=== PATIENT | female | born 1980 | race Caucasian/White ===

== ENCOUNTER 2022-07-26 15:58 | Outpatient (REF) | payer MEDICAID, SELFPAY ==
--- NOTE | ~2022-07-26 | MM_ITS ---
EXAMINATION: MM SCREENING DIGITAL BREAST TOMOSYNTHESIS, BILATERAL CLINICAL INFORMATION: Screening. Asymptomatic. The lifetime risk of breast cancer based on the Tyrer-Cuzick Model is 9%. COMPARISON: Mammography: None TECHNIQUE: Digital breast tomosynthesis is performed in both the craniocaudal and mediolateral oblique views along with computer-aided detection (CAD). Synthesized 2D images are generated from the tomosynthesis. FINDINGS: There are scattered areas of fibroglandular density (ACR BI-RADS breast composition Category b). There are no significant masses, abnormal calcifications, or other abnormalities. MM/MM tomosynthesis screening BI IMPRESSION: No mammographic evidence of malignancy. ASSESSMENT: BI-RADS 1: Negative RECOMMENDATION: Routine annual mammography screening. This patient's information was entered into a reminder system with a target due date for their next mammogram.
== END 2022-07-26 15:59 | disposition home or self-care (01) ==
LOC: HO.MAMMO 15:58
PROVIDERS: PCP Pediatrics; Visit Provider Pediatrics
DX: Z12.31 Encounter for screening mammogram for malignant neoplasm of breast (principal)
CPT/HCPCS: 77063; 77067

== ENCOUNTER 2022-11-27 10:54 | Emergency (ER) | payer MEDICAID, SELFPAY ==
--- NOTE | ~2022-11-27 | CT_ITS ---
EXAMINATION: CT ABDOMEN AND PELVIS WITH CONTRAST CLINICAL INFORMATION: Left lower quadrant pain. Rule out diverticulitis. COMPARISON: None available. TECHNIQUE: Multidetector volumetric images were obtained from the superior aspect of the liver through the pubic symphysis following administration 85 mL of Omnipaque 350 intravenous contrast. Sagittal and coronal reformatted images were obtained on the technologist's workstation. Oral contrast: Yes This CT examination was performed using dose optimization techniques as appropriate, variously including the following: *Automated exposure control *Adjustment of mA and/or kV according to patient size (this includes techniques or standardized protocols for targeted exams where dose is matched to indication/reason for exam; i.e. extremities or head) *Use of iterative reconstruction technique DLP: 840 mGy-cm FINDINGS: LUNG BASES: The visualized lung bases are unremarkable. LIVER, GALLBLADDER, AND BILIARY TREE: The liver is normal in size, shape, and attenuation. No focal hepatic lesion or biliary ductal dilatation is present. The gallbladder has been removed. PANCREAS: Unremarkable. SPLEEN: Unremarkable. ADRENAL GLANDS: 1 cm low-attenuation left adrenal lesion. The right adrenal gland is normal. No imaging follow-up recommended. KIDNEYS AND URETERS: Mild left hydronephrosis. The ureter left ureter does not appear dilated. Appearance is questionable for mild left UPJ obstruction. Kidneys are otherwise normal. BLADDER: Unremarkable. GASTROINTESTINAL TRACT: The small and large bowel are unremarkable. The appendix is unremarkable. ABDOMINAL WALL: Small periumbilical hernia containing fat. LYMPH NODES: Normal. VASCULAR: Unremarkable. PELVIC VISCERA: The anterior wall of the uterus abuts the anterior pelvic wall. There is some thickening of the anterior pelvic wall in this region and adjacent fat stranding. Question postoperative surgical change or possibly related to endometriosis. There is a tampon in place. The uterus and adnexa are unremarkable. OSSEOUS STRUCTURES: Mild degenerative changes of the spine and joints. CT/CT abdomen pelvis w IV con IMPRESSION: No evidence of diverticulosis or diverticulitis. Mild left UPJ obstruction. Inflammatory changes adjacent to the anterior wall of the uterus which abuts the anterior abdominal wall. Question postsurgical change versus endometriosis.. Fleischner guidelines were followed.
[2022-11-27 11:19] VITALS: BP 126/63; PULSE 87; RESP 18; TEMP 36.8; O2SAT 96; BMI 42.0
--- NOTE | 2022-11-27 11:19 | ED_ITS ---
HPI - Abdominal Pain General Chief Complaint: Abdominal Pain Stated Complaint: Abd cramping Time Seen by Provider: 11/27/22 12:08 History of Present Illness HPI narrative: patient complains of crampy abdominal pain mostly lower abdominal, but sometimes upper both sides as well, right now pain is worst in the left lower abdomen it is described as moderate, it is crampy and intermittent She has had no nausea vomiting or diarrhea no anorexia no dysuria no frequency She has no chest pain or shortness of breath no fever no back pain or flank pain Related Data Previous Rx's Medication Instructions Recorded acetaminophen 500 mg tablet 1,000 mg PO QID PRN pain #30 tabs 11/27/22 famotidine 20 mg tablet (Pepcid) 20 mg PO DAILY #14 tabs 11/27/22 ibuprofen 600 mg tablet 600 mg PO Q6H PRN pain #20 tabs 11/27/22 Allergies Allergy/AdvReac Type Severity Reaction Status Date / Time topiramate [From TOPAMAX] Allergy Unknown UNKNOWN Unverified 03/24/20 16:37 oxcarbazepine Allergy Rash Verified 11/27/22 11:25 [facility] Past Medical History Source: nursing notes reviewed Social History Social History Alcohol intake: never Smoked in Last 30 Days: No Use of substances other than those prescribed or required for medical reasons: No Advance Directives: No Advance Directives Information Provided: No Patient : No Physical Exam ED Vital Signs: Vital Signs - 24 hr 11/27/22 11:19 11/27/22 13:24 Temperature 98.3 F 97.9 F Pulse Rate 87 70 Respiratory Rate 18 18 Blood Pressure 126/63 111/54 L Pulse Oximetry 96 99 Oxygen Delivery Method Room Air Room Air BMI result Body Mass Index 42.0 general appearance is no acute distress Eyes are anicteric no pallor Pharynx is clear with moist mucous man Reins no redness swelling or exudate Neck is supple Chest clear to auscultation bilateral Chest wall nontender Heart no murmur Abdomen had diffuse mild tenderness, worst in left lower quadrant no rebound no guarding The back there is no CVA tenderness there is no flank tenderness on either side Extremities full range of motion x4, no pedal edema Skin no rash Neuro no focal deficits Course Course Course Narrative: RME: 42yo F w/no sig PMHx c/o constant lower abdominal pain x3 days radiating to upper abdomen with assoc diarrhea yesterday. denies fever, chills, N/V, vaginal bleeding or discharge, dysuria/hematuria abdomen soft diffusely ttp > RLQ, no rebound or guarding Labs, UA, U-preg ordered Full HPI, ROS and PE to be performed by primary ED provider. No acute findings on CBC, white count was 9.7, no anemia no acute findings on chemistry except a mild bump in ALT which was 35 otherwise LFTs and lipase were normal, renal function was normal with BUN of 12 and creatinine 00.73 Urinalysis was negative with no sign of UTI, no blood CT scan was done and it showed mild left hydro nephrosis, and was questionable for mild left UPJ obstruction, as well as some thickening of anterior pelvic wall showing possibility of endometriosis No other acute findings Patient is informed that she should follow with urologist and is given the name for evaluation of hydronephrosis and UPJ She is advised to follow with fish and game warden for evaluation of possible endometriosis She is comfortable on discharge without needing any pain medicine and is tolerating p.o. and is discharged from the emergency room Medical Decision Making Lab Data MDM Lab Attestation statement: I reviewed the patient's lab results. 11/27/22 11:35 11/27/22 11:35 Labs: Lab Results 11/27/22 11/27/22 11/27/22 Range/Units 11:35 11:35 11:41 WBC 9.7 (4.8-10.8) X10*3/uL RBC 5.08 (4.20-5.50) X10*6/uL Hgb 14.5 (12.0-16.0) g/dl Hct 42.9 (37.0-47.0) % MCV 84.4 (80.0-98.0) fL MCH 28.5 (27.0-33.0) pg MCHC 33.8 (31.0-35.0) g/dl RDW 13.2 (11.0-16.0) % Plt Count 344 (160-400) X10*3/uL MPV 9.5 (9.4-12.3) fL Immature Gran % (Auto) 0.2 (0.0-0.4) % Neut % (Auto) 51.8 (45-73) % Lymph % (Auto) 41.8 H (20-40) % [place] % (Auto) 5.1 (2-11) % Eos % (Auto) 0.8 (0-4) % Baso % (Auto) 0.3 (0-2) % Lymph # (Auto) 4.0 (1.2-4.9) X10*3/uL [place] # (Auto) 0.5 (0.1-1.2) X10*3/uL Eos # (Auto) 0.1 (0.0-0.4) X10*3/uL Baso # (Auto) 0.0 (0.0-0.2) X10*3/uL Abs Immat Gran (auto) 0.02 (0.00-0.03) X10*3/uL Absolute Neuts (auto) 5.0 (2.0-8.3) x10*3/uL Absolute Nucleated RBC 0.000 (0.0-0.012) X10*3/uL Nucleated RBC % (auto) 0.0 (0.0-0.2) /100WBC Sodium 136 (135-145) mmol/L Potassium 3.6 (3.3-5.1) mmol/L Chloride 100 (96-108) mmol/L Carbon Dioxide 27 (22-29) mmol/L Anion Gap 13 (12-20) BUN 12 (9-16) mg/dL Creatinine 0.73 (0.5-1.4) mg/dL Estim Creat Clear Calc 102.9 Estimated GFR > 60 Random Glucose 122 H (60-115) mg/dL Calcium 9.8 (8.4-10.2) mg/dL Magnesium 1.8 (1.6-2.6) mg/dL Total Bilirubin 0.6 (0.0-1.0) mg/dL Direct Bilirubin 0.2 (0.0-0.5) mg/dL AST 27 (5-31) U/L ALT 35 H (0-31) U/L Alkaline Phosphatase 72 (39-117) U/L Total Protein 7.2 (6.5-8.0) g/dL Albumin 4.2 (3.5-5.0) g/dL Lipase 21 (8-78) U/L Urine Color Yellow Urine Appearance Clear Urine pH 5.5 (5.0-9.0) Ur Specific [facility] 1.015 (1.005-1.025) Urine Protein Negative (Neg-Trace) mg/dL Urine Glucose (UA) Negative (Negative) mg/dL Urine Ketones Negative (Negative) mg/dL Urine Blood Negative (Negative) Urine Nitrite Negative (Negative) Ur Leukocyte Esterase Negative (Negative) Urine Test (NEGATIVE) 11/27/22 Range/Units 11:41 WBC (4.8-10.8) X10*3/uL RBC (4.20-5.50) X10*6/uL Hgb (12.0-16.0) g/dl Hct (37.0-47.0) % MCV (80.0-98.0) fL MCH (27.0-33.0) pg MCHC (31.0-35.0) g/dl RDW (11.0-16.0) % Plt Count (160-400) X10*3/uL MPV (9.4-12.3) fL Immature Gran % (Auto) (0.0-0.4) % Neut % (Auto) (45-73) % Lymph % (Auto) (20-40) % [place] % (Auto) (2-11) % Eos % (Auto) (0-4) % Baso % (Auto) (0-2) % Lymph # (Auto) (1.2-4.9) X10*3/uL [place] # (Auto) (0.1-1.2) X10*3/uL Eos # (Auto) (0.0-0.4) X10*3/uL Baso # (Auto) (0.0-0.2) X10*3/uL Abs Immat Gran (auto) (0.00-0.03) X10*3/uL Absolute Neuts (auto) (2.0-8.3) x10*3/uL Absolute Nucleated RBC (0.0-0.012) X10*3/uL Nucleated RBC % (auto) (0.0-0.2) /100WBC Sodium (135-145) mmol/L Potassium (3.3-5.1) mmol/L Chloride (96-108) mmol/L Carbon Dioxide (22-29) mmol/L Anion Gap (12-20) BUN (9-16) mg/dL Creatinine (0.5-1.4) mg/dL Estim Creat Clear Calc Estimated GFR Random Glucose (60-115) mg/dL Calcium (8.4-10.2) mg/dL Magnesium (1.6-2.6) mg/dL Total Bilirubin (0.0-1.0) mg/dL Direct Bilirubin (0.0-0.5) mg/dL AST (5-31) U/L ALT (0-31) U/L Alkaline Phosphatase (39-117) U/L Total Protein (6.5-8.0) g/dL Albumin (3.5-5.0) g/dL Lipase (8-78) U/L Urine Color Urine Appearance Urine pH (5.0-9.0) Ur Specific [facility] (1.005-1.025) Urine Protein (Neg-Trace) mg/dL Urine Glucose (UA) (Negative) mg/dL Urine Ketones (Negative) mg/dL Urine Blood (Negative) Urine Nitrite (Negative) Ur Leukocyte Esterase (Negative) Urine Test NEGATIVE (NEGATIVE) Medications Administered Discontinued Medications Generic Name Dose Route Start Last Admin Trade Name Freq PRN Reason Stop Dose Admin Iohexol 100 ml 11/27/22 13:58 11/27/22 13:59 Iohexol 350 Mg/Ml 100 Ml Infus..Btl IV 11/27/22 13:59 85 ml ONCE ONE Administration Discharge Plan Discharge Clinical Impression: Abdominal pain, Pelvic pain Patient Disposition: Home, Self-Care Additional Instructions: we are not sure what is causing the crampy discomfort CT scan showed possibility of endometriosis so follow with your fish and game warden CT scan showed a possible obstruction in the urinary tract so follow with urologist There was no emergent problem identified on the CT scan Return for vomiting worsening pain or severe pain out of control or any worse condition or any concerns You can use Tylenol and or Motrin as needed for pain, I also wrote a script for Pepcid to see if acid reduction helps Prescriptions: New acetaminophen 500 mg tablet 1,000 mg PO QID PRN (Reason: pain) Qty: 30 0RF ibuprofen 600 mg tablet 600 mg PO Q6H PRN (Reason: pain) Qty: 20 0RF famotidine [Pepcid] 20 mg tablet 20 mg PO DAILY Qty: 14 0RF Referrals: Charles Yoo MD [Physician] - ( left hydronephrosis, left UPJ obstruction)
[2022-11-27 11:39] LABS: MANUAL DIFF FLAG NO
[2022-11-27 11:40] LABS: Basophils Percent Auto 0.3 % (0-2); Eosinophils Absolute Auto 0.1 X10*3/uL (0.0-0.4); Eosinophils Percent Auto 0.8 % (0-4); Hematocrit 42.9 % (37.0-47.0); Hemoglobin 14.5 g/dl (12.0-16.0); Imm Gran Abs Auto 0.02 X10*3/uL (0.00-0.03); Imm Gran Pct Auto 0.2 % (0.0-0.4); Lymphocytes Percent Auto 41.8 % (20-40); Mean Corpuscular HGB Conc 33.8 g/dl (31.0-35.0); Mean Corpuscular Hemoglobin 28.5 pg (27.0-33.0); Mean Corpuscular Volume 84.4 fL (80.0-98.0); Mean Platelet Volume 9.5 fL (9.4-12.3); Monocytes Absolute Auto 0.5 X10*3/uL (0.1-1.2); Monocytes Percent Auto 5.1 % (2-11); Neutrophils Percent Auto 51.8 % (45-73); Platelet Count 344 X10*3/uL (160-400); Red Blood Count 5.08 X10*6/uL (4.20-5.50); Red Cell Distribution Width 13.2 % (11.0-16.0); White Blood Count 9.7 X10*3/uL (4.8-10.8)
[2022-11-27 11:55] LABS: Appearance Urine Clear; Color Urine Yellow; Glucose Urine UA Negative (Negative); Leukocyte Esterase Urine Negative (Negative); Nitrite Urine Negative (Negative); PH 5.5 (5.0-9.0); Specific Gravity - Urine 1.015 (1.005-1.025); UPreg QC Valid YES; Urine Blood Negative (Negative); Urine Ketones Negative (Negative); Urine Pregnancy NEGATIVE (NEGATIVE); Urine Protein Negative (Neg-Trace)
[2022-11-27 12:00] LABS: Alanine Aminotransferase 35 U/L (0-31); Albumin Level 4.2 g/dL (3.5-5.0); Alkaline Phosphatase 72 U/L (39-117); Anion Gap 13 (12-20); Aspartate Amino Transferase 27 U/L (5-31); Bilirubin Direct 0.2 mg/dL (0.0-0.5); Bilirubin Total 0.6 mg/dL (0.0-1.0); Blood Urea Nitrogen 12 mg/dL (9-16); Calcium 9.8 mg/dL (8.4-10.2); Carbon Dioxide 27 mmol/L (22-29); Chloride 100 mmol/L (96-108); Creatinine Clr Calc Pharmacy 102.9; Estimated Glomerular Filt Rate > 60; Glucose Random 122 mg/dL (60-115); Lipase 21 U/L (8-78); Magnesium 1.8 mg/dL (1.6-2.6); Potassium 3.6 mmol/L (3.3-5.1); Sodium 136 mmol/L (135-145); Total Protein 7.2 g/dL (6.5-8.0)
[2022-11-27 13:24] VITALS: BP 111/54; PULSE 70; RESP 18; TEMP 36.6; O2SAT 99
[2022-11-27] MEDS: iohexoL 350 MG/ML 100 ML INFUS..BTL IV (13:59)
== END 2022-11-27 16:07 | disposition home or self-care (01) ==
PROVIDERS: Physician Assistant; Emergency Provider Emergency Medicine Emergency Medical Services; PCP Pediatrics
DX: R10.9 Unspecified abdominal pain (principal); R10.2 Pelvic and perineal pain; R19.7 Diarrhea, unspecified; N13.39 Other hydronephrosis
CPT/HCPCS: 36415; 74177; 80048; 80076; 81003; 81025; 83690; 83735; 85025; 99284; Q9967

== ENCOUNTER → 2022-12-19 14:54 | Outpatient (BNVA) | payer MEDICAID, SELFPAY | PROVIDERS: PCP Pediatrics; Visit Provider Urology | DX: R93.429 Abnormal radiologic findings on diagnostic imaging of unspecified kidney (principal); Z13.9 Encounter for screening, unspecified | CPT/HCPCS: 99202 ==

== ENCOUNTER 2023-03-25 09:37 | Outpatient (REF) | payer MEDICAID, SELFPAY ==
[2023-03-28 04:54] LABS: HPV mRNA E6/E7 rflx Not Detected (Not Detected)
== END 2023-03-25 09:38 | disposition home or self-care (01) ==
LOC: HO.LNP 09:37
PROVIDERS: PCP Pediatrics; Visit Provider Obstetrics & Gynecology
DX: Z01.419 Encounter for gynecological examination (general) (routine) without abnormal findings (principal); Z11.51 Encounter for screening for human papillomavirus (HPV)
CPT/HCPCS: 87624; 88142; 99386

== ENCOUNTER 2023-03-25 09:37 | Outpatient (AMB) | payer MEDICAID, SELFPAY ==
[2023-03-25 09:39] VITALS: BP 122/76; BMI 41.8
--- NOTE | 2023-03-25 09:39 | A.OFFVIS_ITS ---
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 The patient is doing well with no complaints no pelvic pain with regular menstrual period, no other associated GI or symptoms. Last co testing was many years ago. Last mammogram was in 07/30. CT scan showed the following: PELVIC VISCERA: The anterior wall of the uterus abuts the anterior pelvic wall. There is some thickening of the anterior pelvic wall in this region and adjacent fat stranding. Question postoperative surgical change or possibly related to endometriosis. There is a tampon in place. The uterus and adnexa are unremarkable. [facility] Medical History (Updated 03/25/23 @ 10:09 by Jagdeep Greenberg MD) HTN (hypertension) Depression Surgical History (Updated 03/25/23 @ 09:45 by Priscila Ledezma CMA) Hx of section Hx of cholecystectomy Family History (Updated 03/25/23 @ 09:48 by Priscila Ledezma CMA) Mother AIDS Maternal Grandmother Heart attack Maternal Grandfather Prostate cancer Maternal Aunt Diabetes Social History (Updated 03/25/23 @ 09:48 by Priscila Ledezma CMA) Household Members: Children Housing: Apartment Alcohol intake: never Patient Tobacco Use Status: Never used Tobacco Current occupational status: unemployed Sexually active: No Sexual orientation: Straight/Heterosexual Gender identity: Female Female Reproductive History Menstrual Age of Menarche: 9 Duration of menses: 3-5 days Date of last menstrual period: 03/14/23 control method: none Total pregnancies: 4 Full term: 3 Number of Living Children: 3 Ab spontaneous: 1 Physical Exam Vital Signs: Last Vital Signs BP 122/76 03/25/23 09:39 BMI result Body Mass Index 41.8 Assessment & Plan Assessment & Plan (1) Well woman exam: Code(s): Z01.419 - Encounter for gynecological examination (general) (routine) without abnormal findings Plan: Cotesting done. Mammogram ordered for 07/31. Discussed with the patient the finding on CT scan showing lower uterine segment at the site of 3 previous C- section thick and. Given the patient does not have history of pelvic pain suggestive of endometriosis, the finding can be explained by the history of 3 previous . Counseled the patient about the recommended dietary allowa nce of 1000 mg of Calcium & 600 IU of vitamin D. The patient was instructed to perform monthly self-breast exams and to schedule an annual exam in a year; instructions given the patient to call in case of abnormal uterine bleeding or pelvic pain . All questions answered and the patient verbalized understanding. Instructed the patient to schedule annual exam in a year Coding Level of Care Code New Pt Prev Care 40-64y(74150) Diagnoses Well woman exam Z01.419
== END 2023-03-25 10:27 | disposition home or self-care (01) ==
PROVIDERS: PCP Pediatrics; Visit Provider Obstetrics & Gynecology
DX: Z01.419 Encounter for gynecological examination (general) (routine) without abnormal findings (principal)
CPT/HCPCS: 99386

== ENCOUNTER 2023-08-21 10:15 | Emergency (ER) | payer MEDICAID, SELFPAY ==
[2023-08-21 10:29] VITALS: BP 128/80; PULSE 90; RESP 19; TEMP 36.1; O2SAT 99; BMI 40.9
[2023-08-21 11:10] LABS: MANUAL DIFF FLAG NO
[2023-08-21 11:15] LABS: Basophils Percent Auto 0.2 % (0-2); Eosinophils Absolute Auto 0.1 X10*3/uL (0.0-0.4); Eosinophils Percent Auto 0.8 % (0-4); Hematocrit 42.4 % (37.0-47.0); Hemoglobin 14.4 g/dl (12.0-16.0); Imm Gran Abs Auto 0.02 X10*3/uL (0.00-0.03); Imm Gran Pct Auto 0.3 % (0.0-0.4); Lymphocytes Absolute Auto 1.9 X10*3/uL (1.2-4.9); Lymphocytes Percent Auto 30.3 % (20-40); Mean Corpuscular Hemoglobin 28.7 pg (27.0-33.0); Mean Corpuscular Volume 84.6 fL (80.0-98.0); Mean Platelet Volume 9.5 fL (9.4-12.3); Monocytes Absolute Auto 0.5 X10*3/uL (0.1-1.2); Neutrophils Absolute Auto 3.7 x10*3/uL (2.0-8.3); Neutrophils Percent Auto 60.4 % (45-73); Platelet Count 323 X10*3/uL (160-400); Red Blood Count 5.01 X10*6/uL (4.20-5.50); Red Cell Distribution Width 13.4 % (11.0-16.0); UPreg QC Valid YES; Urine Pregnancy NEGATIVE (NEGATIVE); White Blood Count 6.1 X10*3/uL (4.8-10.8)
[2023-08-21 11:23] LABS: Appearance Urine Clear; Color Urine Orange; Glucose Urine UA Negative (Negative); Leukocyte Esterase Urine Trace (Negative); Nitrite Urine Negative (Negative); UMIC TRIGGER UACC YES; Urine Blood Large (3+) (Negative); Urine Ketones Negative (Negative); Urine Protein 30 (1+) mg/dL (Neg-Trace)
[2023-08-21 11:24] LABS: Bacteria Urine Trace (None Seen); Hyaline Casts Urine 0-2 /LPF (0-2); RBC Urine >20 /HPF (0-2); UACC Culture Trigger YES
[2023-08-21 11:30] LABS: Alanine Aminotransferase 20 U/L (0-31); Albumin Level 4.1 g/dL (3.5-5.0); Alkaline Phosphatase 63 U/L (39-117); Anion Gap 11 (12-20); Aspartate Amino Transferase 23 U/L (5-31); Bilirubin Direct 0.2 mg/dL (0.0-0.5); Bilirubin Total 0.5 mg/dL (0.0-1.0); Blood Urea Nitrogen 7 mg/dL (9-16); Calcium 9.3 mg/dL (8.4-10.2); Carbon Dioxide 29 mmol/L (22-29); Chloride 101 mmol/L (96-108); Creatinine Clr Calc Pharmacy 97.6; Estimated Glomerular Filt Rate > 60; Glucose Random 114 mg/dL (60-115); Lipase 15 U/L (8-78); Potassium 2.9 mmol/L (3.3-5.1); Sodium 138 mmol/L (135-145); Total Protein 7.5 g/dL (6.5-8.0)
--- NOTE | 2023-08-21 11:35 | ECG_ITS ---
Test Reason : hypokalemia Blood Pressure : / mmHG Vent. Rate : 073 BPM Atrial Rate : 073 BPM P-R Int : 120 ms QRS Dur : 078 ms QT Int : 426 ms P-R-T Axes : 038 001 -46 degrees QTc Int : 469 ms Normal sinus rhythm Minimal voltage criteria for LVH, may be normal variant ( R in aVL ) Nonspecific T wave abnormality Abnormal ECG No previous ECGs available Referred By: [place] Electronically Signed By:Nadeem Fuller
[2023-08-21 11:54] LABS: COVID-19 Test Negative (Negative); IDNOW Serial# 58CA691E; IDNOW Serial# 9DB6401D; Influenza A Negative (Negative); Influenza B2 Negative (Negative)
[2023-08-21 14:04] LABS: Magnesium 1.9 mg/dL (1.6-2.6)
--- NOTE | 2023-08-21 14:50 | ED_ITS ---
HPI - General Adult General Chief complaint: Abdominal Pain Stated complaint: Diarrhea Etc Time Seen by Provider: 08/21/23 14:43 Source: patient Mode of arrival: ambulatory Limitations: no limitations History of Present Illness HPI narrative: Patient is a 43-year-old female with history of cholecystectomy, x3, hypertension presenting to the emergency department with complaint of diarrhea for the past 4 days, reporting 3-4 episodes daily. Also complains of intermittent right upper quadrant abdominal pain. Denies pain currently. Reports that she has decreased her p.o. intake due to having episodes of diarrhea with p.o. intake. She denies fevers. She denies any nausea or vomiting. Denies any back or flank pain. Denies any chest pain, dyspnea, or palpitations. Denies any dysuria, frequency, hematuria or other urinary symptoms. She has not used any [id number] medications for her symptoms. Denies anyone at home with similar symptoms. Denies recent antibiotic use. MD complaint: Diarrhea Onset (ago): day(s) Location: abdomen Radiation: non-radiation Pain Consistency: intermittent Exacerbating factors: eating Associated symptoms: denies other symptoms Treatments prior to arrival: none Related Data Home Medications Medication Instructions Recorded Confirmed cholecalciferol (vitamin D3) 50 50 mcg PO BID 03/25/23 mcg (2,000 unit) capsule (Vitamin D3) clonazepam 0.5 mg tablet 0.5 mg PO BID 03/25/23 fluoxetine 20 mg capsule 20 mg PO QAM 03/25/23 hydrochlorothiazide 25 mg tablet 25 mg PO DAILY 03/25/23 Previous Rx's Medication Instructions Recorded potassium chloride 20 mEq oral 20 meq PO DAILY 3 days #3 ea 08/21/23 packet Allergies Allergy/AdvReac Type Severity Reaction Status Date / Time topiramate [From TOPAMAX] Allergy Unknown UNKNOWN Verified 08/21/23 10:29 oxcarbazepine Allergy Rash Verified 08/21/23 10:29 Review of Systems 2 Review of Systems: As per HPI. Yes all other systems are reviewed and are negative Constitutional: Constitutional: Reports as per HPI PMF Past Medical History Medical History (Updated 08/21/23 @ 15:45 by Carmina Chapman NP) HTN (hypertension) Depression Surgical History (Updated 03/25/23 @ 09:45 by Priscila Ledezma CMA) Hx of section Hx of cholecystectomy Family History Family History (Updated 03/25/23 @ 09:48 by Priscila Ledezma CMA) Mother AIDS Maternal Grandmother Heart attack Maternal Grandfather Prostate cancer Maternal Aunt Diabetes Social History Social History (Updated 03/25/23 @ 09:48 by Pricsila Ledezma CMA) Household Members: Children Housing: Apartment Alcohol intake: never Patient Tobacco Use Status: Never used Tobacco Smoked in Last 30 Days: No Use of substances other than those prescribed or required for medical reasons: No Advance Directives: No Current occupational status: unemployed Sexual orientation: Straight/Heterosexual Gender identity: Female Physical Exam ED Vital Signs: Vital Signs - 24 hr 08/21/23 10:29 08/21/23 15:36 Temperature 97 F Pulse Rate 90 70 Respiratory Rate 19 16 Blood Pressure 128/80 122/63 Pulse Oximetry 99 96 Oxygen Delivery Method Room Air Room Air BMI result Body Mass Index 40.9 Vital signs have been reviewed and appear to be correct. Blood pressure normal. Heart rate normal. Respiratory rate normal. Temperature normal. Oxygen saturation normal. Const General: cooperative, healthy appearing and no acute distress Orientation/consciousness: oriented to person, oriented to place, oriented to time and patient oriented x3 Limitations: no limitations HENMT Head: Yes normocephalic and Yes atraumatic Ears: external ears normal General nose exam: Normal external nose present Face and sinus: Yes face symmetric Mouth: oropharynx normal and moist mucous membranes Throat: Yes uvula midline Eyes Pupils: Equal, round and reactive pupils present Neck Neck: Yes normal visual inspection and Yes supple Resp Effort & Inspection: normal respiratory effort and able to speak in complete sentences Auscultation: clear to auscultation bilaterally Cardio Rate: regular rate Rhythm: regular rhythm Heart sounds: S1 normal heart sound present and S2 normal heart sound present GI Palpation (GI): Soft to palpation and nontender Auscultation: normoactive bowel sounds General: Yes no CVA tenderness Back/Spine/Pelvis Back: no CVA tenderness Skin General skin exam: elasticity normal and turgor normal Neuro General: oriented to person, oriented to place, oriented to time, patient oriented x3, moves all extremities, no focal motor deficits and CN's II-XI intact bilaterally Cranial nerves: Yes Equal, round and reactive pupils present Cognition (Neuro): normal cognition Extrem General: Yes full ROM, Yes no pedal edema and Yes no calf tenderness Psych Mental Status: mental status grossly normal Affect: normal affect Thought process: Normal thought process present Medications Administered Generic Name Dose Route Start Last Admin Trade Name Freq PRN Reason Stop Dose Admin Potassium Chloride 10 meq in 100 mls @ 100 mls/hr 08/21/23 15:15 08/21/23 15:38 Potassium Chloride/H20 IV 08/21/23 17:14 100 mls/hr Q1H DARIEL Administration Sodium Chloride 1,000 mls @ 999 mls/hr 08/21/23 15:45 08/21/23 15:39 Ns IV 08/21/23 16:45 999 mls/hr .Q1H1M DARIEL Administration Discontinued Medications Generic Name Dose Route Start Last Admin Trade Name Freq PRN Reason Stop Dose Admin Potassium Chloride 20 meq 08/21/23 11:48 08/21/23 15:37 Potassium Chloride Packet 20 Meq Packet PO 08/21/23 11:49 20 meq ONCE ONE Administration Medical Decision Making Medical Decision Making MDM Narrative: Patient is a 43-year-old female with history of cholecystectomy, x3, hypertension presenting to the emergency department with complaint of diarrhea for the past 4 days, reporting 3-4 episodes daily. On exam patient is awake, A+Ox3, VS WNL, afebrile, normal neurological exam without focal deficits, physical exam findings as above. Given reported symptoms and physical exam findings, initial differential includes gastroenteritis, dehydration, electrolyte abnormalities, inflammatory bowel disease. Abdomen is soft and nontender, no CVA tenderness. Labs notable for hypokalemia of 2.9, no leukocytosis, no anemia, no evidence of CASH, no other significant electrolyte abnormalities, negative . Urinalysis notable for 3+ blood, 6-10 wbc's, trace bacteria. Patient states that she is currently menstruating, denies any urinary symptoms, unlikely UTI. Patient given IV fluids as well as IV and PO potssium in the ED. Will discharge home with PO potassium. Advised patient she can use OTC immodium for diarrhea, should progress with clear fluids, then bland diet, then back to normal diet as tolerated. Instructed patient to follow up with PCP for repeat labs. Return precautions discussed at bedside. Patient verbalized understanding of and agreement with plan. Differential Diagnosis Differential Diagnoses: The differential diagnosis associated with the presentation includes As per MDM. Lab Data [facility] Lab Attestation statement: I reviewed the patient's lab results. As per MDM. 08/21/23 11:02 08/21/23 11:02 Labs: Lab Results 08/21/23 Range/Units 11:02 WBC 6.1 (4.8-10.8) X10*3/uL RBC 5.01 (4.20-5.50) X10*6/uL Hgb 14.4 (12.0-16.0) g/dl Hct 42.4 (37.0-47.0) % MCV 84.6 (80.0-98.0) fL MCH 28.7 (27.0-33.0) pg MCHC 34.0 (31.0-35.0) g/dl RDW 13.4 (11.0-16.0) % Plt Count 323 (160-400) X10*3/uL MPV 9.5 (9.4-12.3) fL Immature Gran % (Auto) 0.3 (0.0-0.4) % Neut % (Auto) 60.4 (45-73) % Lymph % (Auto) 30.3 (20-40) % [place] % (Auto) 8.0 (2-11) % Eos % (Auto) 0.8 (0-4) % Baso % (Auto) 0.2 (0-2) % Lymph # (Auto) 1.9 (1.2-4.9) X10*3/uL [place] # (Auto) 0.5 (0.1-1.2) X10*3/uL Eos # (Auto) 0.1 (0.0-0.4) X10*3/uL Baso # (Auto) 0.0 (0.0-0.2) X10*3/uL Abs Immat Gran (auto) 0.02 (0.00-0.03) X10*3/uL Absolute Neuts (auto) 3.7 (2.0-8.3) x10*3/uL Absolute Nucleated RBC 0.000 (0.0-0.012) X10*3/uL Nucleated RBC % (auto) 0.0 (0.0-0.2) /100WBC Sodium 138 (135-145) mmol/L Potassium 2.9 L* (3.3-5.1) mmol/L Chloride 101 (96-108) mmol/L Carbon Dioxide 29 (22-29) mmol/L Anion Gap 11 L (12-20) BUN 7 L (9-16) mg/dL Creatinine 0.75 (0.5-1.4) mg/dL Estim Creat Clear Calc 97.6 Estimated GFR > 60 Random Glucose 114 (60-115) mg/dL Calcium 9.3 (8.4-10.2) mg/dL Magnesium 1.9 (1.6-2.6) mg/dL Total Bilirubin 0.5 (0.0-1.0) mg/dL Direct Bilirubin 0.2 (0.0-0.5) mg/dL AST 23 (5-31) U/L ALT 20 (0-31) U/L Alkaline Phosphatase 63 (39-117) U/L Total Protein 7.5 (6.5-8.0) g/dL Albumin 4.1 (3.5-5.0) g/dL Lipase 15 (8-78) U/L Urine Color [place] A Urine Appearance Clear Urine pH 6.0 (5.0-9.0) Ur Specific [place] 1.010 (1.005-1.025) Urine Protein 30 (1+) H (Neg-Trace) mg/dL Urine Glucose (UA) Negative (Negative) mg/dL Urine Ketones Negative (Negative) mg/dL Urine Blood Large (3+) H (Negative) Urine Nitrite Negative (Negative) Ur Leukocyte Esterase Trace H (Negative) Urine RBC >20 H (0-2) /HPF Urine WBC 6-10 H (0-5) /HPF Ur Squamous Epith Cells 3-5 (0-2) /HPF Urine Bacteria Trace (None Seen) Hyaline Casts 0-2 (0-2) /LPF Urine Test NEGATIVE (NEGATIVE) COVID-19 ([facility]) Negative (Negative) COVID-19 Clin Com See Note Influenza Type A ([facility]) Negative (Negative) Influenza Type B ([facility]) Negative (Negative) Influenza A & B Note See Note External Record Review External record reviewed: Inpatient record, Office record and Outpatient record Discharge Plan Discharge Clinical Impression: Hypokalemia, Diarrhea Patient Disposition: Still a Patient Instructions: Potassium Content of Foods List (ED), Hypokalemia (ED), Acute Diarrhea (ED) Additional Instructions: You have been evaluated in the emergency department today for diarrhea. Your evaluation suggests that your symptoms are most likely due to a viral illness which will improve on it's own with rest and fluids. Your potassium was noted to be low on labs drawn today. You were given potassium by mouth and IV in the emergency department. Remember to drink plenty of fluids at home, including fluids with electrolytes such as Gatorade, Powerade, Pedialyte, etc.. You can use over the counter Immodium for your diarrhea. Please follow up with your primary care provider within two days for repeat labs. Return to the emergency department if you experience worsening or uncontrolled pain, inability to tolerate fluids by mouth, difficulty breathing, fevers 100.4? F or greater, recurrent vomiting, or any other concerning symptoms. Prescriptions: New potassium chloride 20 mEq packet 20 meq PO DAILY 3 Days Qty: 3 0RF No Action clonazepam 0.5 mg tablet 0.5 mg PO BID hydrochlorothiazide 25 mg tablet 25 mg PO DAILY fluoxetine 20 mg capsule 20 mg PO QAM cholecalciferol (vitamin D3) [Vitamin D3] 50 mcg (2,000 unit) capsule 50 mcg PO BID
[2023-08-21 15:36] VITALS: BP 122/63; PULSE 70; RESP 16; O2SAT 96
[2023-08-21] MEDS: Potassium Chloride Packet 20 MEQ PACKET PO (15:37)
[2023-08-21] MEDS: Potassium Chloride/H20 10 MEQ/100 ML PIGGYBACK 100 MEQ IV ×2 (15:38→17:36)
[2023-08-21] MEDS: 0.9 % Sodium Chloride 1,000 ML 999 ML IV (15:39)
[2023-08-21 18:07] VITALS: BP 129/66; PULSE 65; RESP 18; TEMP 36.6; O2SAT 97
--- NOTE | 2023-08-21 19:50 | PC.NURSE ---
Pt enters my care- pt is well appearing - pt states she had multiple days of diarrhea with general malaise- pt K+ low- Pt K currently being replaced- NAD-VSS
[2023-08-21 22:08] VITALS: BP 127/64; PULSE 69; RESP 16; TEMP 36.6; O2SAT 98
== END 2023-08-21 23:12 | disposition home or self-care (01) ==
PROVIDERS: Physician Assistant Medical; Emergency Provider Emergency Medicine Emergency Medical Services; PCP Pediatrics
DX: R19.7 Diarrhea, unspecified (principal); E87.6 Hypokalemia; I10 Essential (primary) hypertension; Z11.52 Encounter for screening for COVID-19; Z79.899 Other long term (current) drug therapy
CPT/HCPCS: 80048; 80076; 81001; 81025; 83690; 83735; 85025; 87086; 87502; 87635; 93005; 96365; 99284; 99285; J3480

== ENCOUNTER → 2023-08-21 11:35 | Outpatient (BNV) | payer MEDICAID, SELFPAY | PROVIDERS: Emergency Provider Emergency Medicine Emergency Medical Services; PCP Pediatrics; Visit Provider Internal Medicine Cardiovascular Disease | DX: R94.31 Abnormal electrocardiogram [ECG] [EKG] (principal) | CPT/HCPCS: 93010 ==

== ENCOUNTER 2023-09-04 10:29 | Outpatient (REF) | payer MEDICAID, SELFPAY ==
[2023-09-04 17:48] LABS: Potassium 3.8 mmol/L (3.3-5.1)
== END 2023-09-04 10:30 | disposition home or self-care (01) ==
LOC: HO.CHCLDS 10:29
PROVIDERS: Visit Provider Internal Medicine
DX: E87.6 Hypokalemia (principal)
CPT/HCPCS: 36415; 84132

== ENCOUNTER 2023-10-18 11:14 | Outpatient (REF) | payer MEDICAID, SELFPAY ==
--- NOTE | ~2023-10-18 | MM_ITS ---
EXAMINATION: MM SCREENING DIGITAL BREAST TOMOSYNTHESIS, BILATERAL CLINICAL INFORMATION: Screening. Asymptomatic. COMPARISON: Mammography: This study is compared with prior exams dating back to 2022. TECHNIQUE: Digital breast tomosynthesis is performed in both the craniocaudal and mediolateral oblique views along with computer-aided detection (CAD). Synthesized 2D images are generated from the tomosynthesis. FINDINGS: There are scattered areas of fibroglandular density (ACR BI-RADS breast composition Category b). There are no significant masses, abnormal calcifications, or other abnormalities. MM/MM tomosynthesis screening BI IMPRESSION: No mammographic evidence of malignancy. ASSESSMENT: BI-RADS BI-RADS 1 - Negative RECOMMENDATION: Routine annual mammography screening. 1 year F/U This examination should not preclude the clinical evaluation of a suspicious palpable abnormality. This patient's information was entered into a reminder system with a target due date for their next mammogram.
== END 2023-10-18 11:15 | disposition home or self-care (01) ==
LOC: HO.MAMMO 11:14
PROVIDERS: PCP Pediatrics; Visit Provider Pediatrics
DX: Z12.31 Encounter for screening mammogram for malignant neoplasm of breast (principal)
CPT/HCPCS: 77063; 77067

== ENCOUNTER → 2023-10-18 11:15 | Outpatient (BNV) | payer MEDICAID, SELFPAY | PROVIDERS: PCP Pediatrics; Visit Provider Radiology Diagnostic Radiology | DX: Z12.31 Encounter for screening mammogram for malignant neoplasm of breast (principal) | CPT/HCPCS: 77063; 77067 ==

== ENCOUNTER 2023-11-27 12:38 | Outpatient (REF) | payer MEDICAID, SELFPAY ==
[2023-11-27 17:47] LABS: Cholesterol 189 mg/dL (<200); Estimated Average Glucose 126 mg/dL; HDL Cholesterol 51 mg/dL (>40); LDL Cholesterol Calculated 122 mg/dL (<100); TSH reflex Free T4 1.49 uIU/mL (0.32-4.0); Triglycerides 84 mg/dL (<150)
== END 2023-11-27 12:39 | disposition home or self-care (01) ==
LOC: HO.CHCLDS 12:38
PROVIDERS: Visit Provider Pediatrics
DX: Z12.11 Encounter for screening for malignant neoplasm of colon (principal); R73.03 Prediabetes
CPT/HCPCS: 36415; 80061; 83036; 84443

== ENCOUNTER 2025-05-05 11:50 | Outpatient (REF) | payer MEDICAID, SELFPAY ==
--- OUTSIDE RECORDS SUMMARY | 2025-05-05 11:00 | XMS_ITS | Encounter Summary ---
Author Organization [employer] Address [address] [place] [address] [address] [address] Care Team Providers Care Gray Tender Name Role Phone Michelle Archuleta MD Primary Care Provider [phone] Reason for Referral * Imaging (Routine) - Authorized Specialty Diagnoses / Procedures Referred By Contac t Referred To Contact Radiology Diagnoses Irregular periods Procedures US Pelvis Transvaginal Michelle Archuleta MD [address] [place] [address] Phone: tel: fax: [address] Phone: tel: fax: Referral ID Status Reason Start Date Expiration Date V isits Requested Visits Authorized [id number] Authorized 05/05/2025 05/05/2026 1 1 * Imaging (Routine) - Authorized Specialty Diagnoses / Procedures Referred By Contac t Referred To Contact Radiology Diagnoses Irregular periods Procedures Us Pelvis complete Michelle Archuleta MD [address] [place] [address] Phone: tel: fax: [address] Phone: tel: fax: Referral ID Status Reason Start Date Expiration Date V isits Requested Visits Authorized [id number] Authorized 05/05/2025 05/05/2026 1 1 * Imaging (Routine) - Closed Specialty Diagnoses / Procedures Referred By Contvalery t Referred To Contact Radiology Diagnoses Breast cancer screening by mammogram Procedures BI Mammogram Screening Tomosynthesis Bilateral Michelle Archuleta MD [address] [place] [address] Phone: tel: fax: [address] Phone: tel: fax: Referral ID Status Reason Start Date Expiration Date Visits Re quested Visits Authorized [id number] Closed 05/05/2025 05/05/2026 1 1 Encounter Details Date Type Department Care Team (Late st Contact Info) Description 05/05/2025 11:00 AM EDT Office Visit [facility] [address] [place] [address] Michelle Archuleta MD [address] [place] [address] Breast cancer screening by mammogram (Primary Dx); Encounter for immunization; Irregular periods; Anxiety; Colon cancer screening; Hemangioma of liver Social History Tobacco Use Types Packs/Day Years Used Date Smoking Tobacco: Never Passive Smoke Exposure: Never Smokeless Tobacco: Never Alcohol Use Standard Drinks/Week Comments Never 0 (1 standard drink = 0.6 oz pur e alcohol) Depression Answer Date Recorded Patient Health Questionnaire-9 Score 7 05/05/2025 Patient Health Questionnaire-9 Score 7 05/05/2025 Last PHQ-9: Questionnaire Data Not on file 1 Housing Stability Answer Date Recorded What is your housing situation today? I have yoni larson 05/05/[address] you li ve. Do you have problems with any of the following? None of the above 05/05/2025 Food Insecurity Answer Date Recorded Within the past 12 months, y ou worried that your food would run out before you got money to buy more: Sometimes True 2024 Within the past 12 months,th e food you bought just didn't last and you didn't have enough money to get more: Sometimes True 05/05/2025 Transportation Answer Date Recorded In the past 12 months, has l ack of transportation kept you from medical appts, meetings, work or from getting things needed for daily living? No 05/05/2025 Utilities Answer Date Recorded In the past 12 months, has t he electric, gas, oil or water company threatened to shut off services in your home? No 05/05/2025 Depression Answer Date Recorded Patient Health Questionnaire-2 Score 2 05/05/2025 Internet Access Answer Date Recorded Internet Access Q1 Yes 05/05/2025 Internet Access Q2 Not on file 05/05/2025 Comments Unknown Sex and Gender Information Value Date Recorded Sex Assigned at Female 05/07/2022 10:15 AM EDT Legal Sex Female 10:15 AM EDT Gender Identity Female 05/07/2022 10:15 AM EDT Sexual Orientation Straight 05/07/2022 10 :15 AM EDT documented as of this encounter Last Filed Vital Signs Vital Sign Reading Time Taken Comments Blood Pressure 126/90 05/05/2025 11:09 AM EDT Pulse 80 05/05/2025 11:09 AM EDT Temperature 36.8 C (98.3 F) 05/05/2025 11:09 AM EDT Respiratory Rate 20 05/05/2025 11:09 AM EDT Oxygen Saturation - - Inhaled Oxygen Concentration - - Weight 96.2 kg (212 lb) 05/05/2025 11:09 AM EDT Height - - Body Mass Index 41.33 11/27/2023 11:35 AM EDT documented in this encounter Functional Status * Over the past 2 weeks, how often have you been bothered by any of the following problems? Question Answer Date of Assessment Author Patient Health Questionnaire -2 Score 2 05/05/2025 11:37 AM EDT Laura Gonzales MA * Little interest or pleasure in doing things Answer Date of Assessment Author Several days 05/05/2025 11:37 AM EDT [place] * Feeling down, depressed, or hopeless Answer Date of Assessment Author Several days 05/05/2025 11:37 AM EDT [place] * Trouble falling or staying asleep, or sleeping too much Answer Date of Assessment Author Several days 05/05/2025 11:37 AM EDChantale Mg [place] * Feeling tired or having little energy Answer Date of Assessment Author Several days 05/05/2025 11:37 AM EDChantale Mg [place] * Poor appetite or overeating Answer Date of Assessment Author Several days 05/05/2025 11:37 AM EDT [place] * Feeling bad about yourself - or that you are a failure or have let yourself or your family down Answer Date of Assessment Author Several days 05/05/2025 11:37 AM [place]ale [place] * Trouble concentrating on things, such as reading the newspaper or watching television Answer Date of Assessment Author Several days 05/05/2025 11:37 AM [place]ale [place] * Moving or speaking so slowly that other people could have noticed? Or the opposite - being so fidgety or restless that you have been moving around a lot more than usual. Answer Date of Assessment Author Not at all 05/05/2025 11:37 AM [place]ale Jones [place] * Thoughts that you would be better off or hurting yourself in some way Answer Date of Assessment Author Not at all 05/05/2025 11:37 AM [place]ale [place] * Patient Health Questionnaire-9 Score Answer Date of Assessment Author 7 05/05/2025 11:37 AM EDChantale Mg [place] documented as of this encounter Progress Notes * Michelle Archuleta MD - 05/05/2025 11:00 AM EDT Images from the original note were not included. Subjective Patient ID: Andria Rasmussen is a 44 y.o. female who presents for f/u. Here for follow up. Not seen in a while.Suffers from anxiety,obesity, hypertension. Andria Rasmussen, 44 years Menstrual Irregularities and Cramping Andria Rasmussen reports several months of on and off cramping and increasingly irregular menstrual cycles. Periods have become more frequent, with menses arriving a week early on April 08, 2025, and again on April 29, 2025, for one day. Previously, cycles were less frequent. She describes recent cycles as unpredictable and acting weird. Denies hot flashes. No current vaginal bleeding at the time of visit. History of Cervical Cancer Cells She has a history of cervical cancer cells in the past, which is a source of ongoing concern. Last Pap smear was performed on April 04, 2023, and she recalls the result as normal. Recent Use of Emergency Contraception She reports taking Plan B emergency contraception for the first time this month following unprotected sex. She questions whether this may have contributed to the recent changes in her menstrual cycleand cramping. Anxiety She describes feeling very anxious due to multiple stressors, including health concerns and personal circumstances. Hypertension She notes a recent episode of elevated blood pressure, which she attributes to missing her medication. Review of Systems Constitutional: Negative for activity change, chills, fever and unexpected weight change. Respiratory: Negative for cough, shortness of breath and wheezing. Cardiovascular: Negative for chest pain, palpitations and leg swelling. Gastrointestinal: Negative for abdominal pain and blood in stool. Endocrine: Negative for polydipsia and polyuria. Genitourinary: Positive for menstrual problem, pelvic pain and vaginal bleeding. Negative for decreased urine volume, difficulty urinating, dysuria and hematuria. Musculoskeletal: Negative for arthralgias and gait problem. Skin: Negative for color change and rash. Neurological: Negative for dizziness and headaches. Hematological: Negative for adenopathy. Psychiatric/Behavioral: Negative for dysphoric mood, hallucinations, sleep disturbance and suicidalideas. The patient is nervous/anxious. Objective Vitals: 05/05/25 1109 BP: (!) 126/90 BP Location: Left arm Patient Position: Sitting BP Cuff Size: Adult Pulse: 80 Resp: 20 Temp: 98.3 ??F (36.8 ??C) TempSrc: Oral Weight: 212 lb (96.2 kg) Physical Exam Constitutional: General: She is not in acute distress. Appearance: Normal appearance. She is not ill-appearing. HENT: Head: Normocephalic. Right Ear: Tympanic membrane and ear canal normal. Left Ear: Tympanic membrane and ear canal normal. Nose: Nose normal. Mouth/Throat: Mouth: Mucous membranes are moist. Pharynx: No oropharyngeal exudate or posterior oropharyngeal erythema. Eyes: Extraocular Movements: Extraocular movements intact. Conjunctiva/sclera: Conjunctivae normal. Pupils: Pupils are equal, round, and reactive to light. Cardiovascular: Rate and Rhythm: Normal rate and regular rhythm. Pulses: Normal pulses. Heart sounds: Normal heart sounds. Pulmonary: Effort: Pulmonary effort is normal. No respiratory distress. Breath sounds: Normal breath sounds. Abdominal: General: Bowel sounds are normal. There is distension. Palpations: Abdomen is soft. Tenderness: There is abdominal tenderness in the right lower quadrant. Musculoskeletal: General: Normal range of motion. Cervical back: Normal range of motion. Skin: General: Skin is warm. Capillary Refill: Capillary refill takes less than 2 seconds. Neurological: General: No focal deficit present. Mental Status: She is alert and oriented to person, place, and time. Psychiatric: Mood and Affect: Mood normal. Behavior: Behavior normal. Thought Content: Thought content normal. Judgment: Judgment normal. Assessment/Plan Diagnoses and all orders for this visit: Breast cancer screening by mammogram - BI Mammogram Screening Tomosynthesis Bilateral; Future - CBC auto differential; Future - Comprehensive Metabolic Panel; Future - Hepatitis C Antibody with Reflex to HCV, RNA, Quantitative, Real-Time PCR; Future - HIV-1/2 Antigen and Antibodies, Fourth Generation, with Reflexes; Future - TSH W/Reflex to FT4; Future - Syphilis Screen; Future - Vitamin D, 25-Hydroxy, Total, Immunoassay; Future - Vitamin B12/Folate, Serum Panel; Future - Hemoglobin A1c; Future Encounter for immunization - FLU VACCINE TRIVALENT [id number] (Fluarix) 19 yrs + - CBC auto differential; Future - Comprehensive Metabolic Panel; Future - Hepatitis C Antibody with Reflex to HCV, RNA, Quantitative, Real-Time PCR; Future - HIV-1/2 Antigen and Antibodies, Fourth Generation, with Reflexes; Future - TSH W/Reflex to FT4; Future - Syphilis Screen; Future - Vitamin D, 25-Hydroxy, Total, Immunoassay; Future - Vitamin B12/Folate, Serum Panel; Future - Hemoglobin A1c; Future Irregular periods - CBC auto differential; Future - Comprehensive Metabolic Panel; Future - Hepatitis C Antibody with Reflex to HCV, RNA, Quantitative, Real-Time PCR; Future - HIV-1/2 Antigen and Antibodies, Fourth Generation, with Reflexes; Future - TSH W/Reflex to FT4; Future - Syphilis Screen; Future - Vitamin D, 25-Hydroxy, Total, Immunoassay; Future - Vitamin B12/Folate, Serum Panel; Future - Hemoglobin A1c; Future Anxiety Colon cancer screening Patient never sent in her Cologuard. Declines referral for colonoscopy as well. Hemangioma of liver Stable and asymptomatic. Order RUQ imaging study again for surveillance if becomes symptomatic. Breast cancer screening by mammogram: - Ordered mammogram. Follow-up scheduled in 4 to 6 weeks to review results. Encounter for immunization: - Administered influenza vaccine. Irregular periods: - Irregular menstrual cycles likely related to perimenopausal transition. - Ordered pelvic ultrasound to evaluate for ovarian cysts, uterine fibroids, and endometrial thickness. Ordered blood work for hormonal assessment. Follow-up scheduled in 4 to 6 weeks to review results. Pelvic pain and abnormal uterine bleeding: - Pelvic pain and abnormal uterine bleeding may be due to ovarian cysts, uterine fibroids, or endometrial pathology. Differential includes side effects from emergency contraception. - Ordered pelvic ultrasound. Ordered blood work. Follow-up scheduled in 4 to 6 weeks to review results. STD screening: - Ordered blood work for sexually transmitted disease screening. Liver function assessment: - Ordered blood work for liver function assessment. Will order liver ultrasound. Diabetes screening: - Ordered blood work for diabetes screening. testing: - Offered blood test. Future Appointments Date Time Provider Department Center 05/10/2025 1:00 PM Neha Lerma RN [facility] This note was drafted using Ambient (AI) technology. The patient/patient's guardian has been informed and has consented to the use of this technology: Yes documented in this encounter Plan of Treatment Upcoming Encounters Date Type Department Care Team (Late st Contact Info) Description 05/10/2025 1:00 PM EST Telemedicine [facility] [address] [place] [address] Neha Lerma RN [address] [place] [address] 07/06/2025 11:30 AM EST Office Visit [facility] [address] [place] [address] Michelle Archuleta MD [address] [place] [phone] Scheduled Orders Name Type Priority Associated Diagnoses Orde r Schedule BI Mammogram Screening Tomosynthesis Bilateral Imaging Routine Breast cancer screening by mammogram Expected: 05/05/2025, Expires: 07/05/2026 Hepatitis C Antibody with Reflex to HCV, RNA, Quantitative, Real-Time PCR Lab Routine Breast cancer screening by mammogram Encounter for immunization Irregular periods Expected: 05/05/2025, Expires: 05/05/2026 HIV-1/2 Antigen and Antibodies, Fourth Generation, with Reflexes Lab Routine Breast cancer screening by mammogram Encounter for immunization Irregular periods Expected: 05/05/2025 (Approximate), Expires: 05/05/2026 Syphilis Screen Lab Routine Breast cancer screening by mammogram Encounter for immunization Irregular periods Expected: 05/05/2025, Expires: 05/05/2026 Us Pelvis complete Imaging Routine Irregular periods Expected: 05/05/2025, Expires: 05/05/2026 US Pelvis Transvaginal Imaging Routine Irregular periods Expected: 05/05/2025, Expires: 05/05/2026 documented as of this encounter Procedures Procedure Name Priority Date/Time Associated Diagnosis Comments VITAMIN D,25-OH,TOTAL,IA Routine 05/05/2025 11:52 AM EDT Breast cancer screening by mammogram Encounter for immunization Irregular periods VITAMIN B12/FOLATE, SERUM PANEL Routine 05/05/2025 11:52 AM EDT Breast cancer screening by mammogram Encounter for immunization Irregular periods TSH W/REFLEX TO FT4 Routine 05/05/2025 1 1:52 AM EDT Breast cancer screening by mammogram Encounter for immunization Irregular periods CBC WITH AUTO DIFFERENTIAL Routine 05/05/2025 11:52 AM EDT Breast cancer screening by mammogram Encounter for immunization Irregular periods HEMOGLOBIN A1C Routine 05/05/2025 11:52 AM EDT Breast cancer screening by mammogram Encounter for immunization Irregular periods COMPREHENSIVE METABOLIC PANEL Routine 05/05/2025 11:52 AM EDT Breast cancer screening by mammogram Encounter for immunization Irregular periods documented in this encounter Results * Hemoglobin A1c (05/05/2025 11:52 AM EDT) Hemoglobin A1c 6.0 <6.0 % [facility] Comment:Hemoglobin A1C Refer ence Range Adults: 4.8 - 6.0 % Non diabetic: < 6.0 % Goal: < 7.0 %Additional Action Suggested: > 8.0 %Note: Hemoglobin A1c results are invalid for patients with abnormal amounts of HbF. Blood transfusions may impact the HbA1c concentration in the patient sample. Estimated Average Glucose 126 mg/dL [facility] Comment:eAG = Estimated ave rage glucose which is %A1C expressed asaverage glucose, using the formula of the [id number] Glucose study (ADAG), Diabetes Care, Vol.31,#8,Feb. 2007 Blood Venous blood specimen / Unknown 05/05/2025 11:52 AM EDT 05/05/2025 1:55 PM EDT us Michelle Archuleta MD LAB BLOOD ORDERABLES Final Re sult [facility] [address] [place] [phone] * Vitamin B12/Folate, Serum Panel (05/05/2025 11:52 AM EDT) Vitamin B12 229 200 - 900 pg/mL [facility] Comment:NORMAL 200-900 PG/ML INDETERMINATE 160-199 PG/ML DEFICIENT < 160 PG/ML Folate 10.0 > or = 4.0 ng/mL [facility] Comment:Reference Values:> o r = 4.0 ng/mL< 4.0 ng/mL suggests folate deficiency Methotrexate, aminopterin and folinic acid(leucovorin) are chemotherapeutic agents whose molecularstructures are similar to folate; therefore, the Architectfolate assay cannot be used for patients using these drugs. Blood Venous blood specimen / Unknown 05/05/2025 11:52 AM EDT 05/05/2025 1:55 PM EDT Michelle Archuleta MD LAB BLOOD ORDERABLES Final Re sult Performing Organization Address [facility]/ZIP Co de Phone Number [facility] [address] [place] [address] [phone] * Vitamin D, 25-Hydroxy, Total, Immunoassay (05/05/2025 11:52 AM EDT) Pathologist [facility] Vitamin D 25-OH Total 90.2 >30 ng/mL [facility] Comment: Health Based Reference Values*< 20 ng/mL [id number] ng/mL Insufficient> 30 ng/mL Sufficient*Franklyn GARCIA. N Engl J Med. 2007;357:266-280There is no well-established upper level of normal vitamin Dlevels. Some laboratories use 50 ng/mL as an upper limit ofnormal. However, toxicity is patient-dependent and may occurat any level. Careful correlation with the patient'spresentation is necessary and, if there is concern forvitamin D toxicity, treatment should be consideredirrespective of the serum level.Care must be taken in interpreting Vitamin D results fromdifferent laboratories and methodologies. Published datademonstrated that results from patients undergoinghemodialysis may show a negative bias when tested withvarious automated 25-OH vitamin D assays when compared toLC-MS/MS.When testing samples from patients whose predominant form ofVitamin D is Vitamin D2, such as patients receiving VitaminD2 supplementation, results that are subtherapeutic shouldbe confirmed with another method such as LC-MS/MS. Blood Venous blood specimen / Unknown 05/05/2025 11:52 AM EDT 05/05/2025 1:55 PM EDT Michelle Archuleta MD LAB BLOOD ORDERABLES Final Re sult Performing Organization Address [facility]/ZIP Co de Phone Number [facility] [address] [place] [address] [phone] * TSH W/Reflex to FT4 (05/05/2025 11:52 AM EDT) TSH reflex Free T4 3.53 0.32 - 4.0 uIU/mL [facility] Blood Venous blood specimen / Unknown 05/05/2025 11:52 AM EDT 05/05/2025 1:55 PM EDT us Michelle Archuleta MD LAB BLOOD ORDERABLES Final Re sult [facility] [address] [place] [address] [phone] * (ABNORMAL) Comprehensive Metabolic Panel (05/05/2025 11:52 AM EDT) Sodium 139 135 - 145 mmol/L [facility] Potassium 3.7 3.3 - 5.1 mmol/L [facility] Chloride 103 96 - 108 mmol/L [facility] Carbon Dioxide 30(H) 22 - 29 mmol/L [facility] Anion Gap 10(L) 12 - 20 [facility] Urea Nitrogen (BUN) 12 9 - 16 mg/dL [facility] Creatinine, Serum 0.61 0.5 - 1.4 mg/dL [facility] Estimated Glomerular Filt Rate >60 [facility] Comment:Chronic Kidney Disea se: Estimated GFR < 60 mL/min/1.33w5Chkzvt Kidney Disease: Estimated GFR < 15 mL/min/1.73m2 Glucose 106 60 - 115 mg/dL [facility] Calcium 9.5 8.4 - 10.2 mg/dL [facility] Bilirubin, Total 0.4 0.0 - 1.0 mg/dL [facility] Aspartate Amino Transferase 29 5 - 31 U/L [facility] Alanine Aminotransferase 29 0 - 31 U/L [facility] Total Protein 7.6 6.5 - 8.0 g/dL [facility] Albumin Level 4.6 3.5 - 5.0 g/dL [facility] Alkaline Phosphatase 54 39 - 117 U/L [facility] Blood Venous blood specimen / Unknown 05/05/2025 11:52 AM EDT 05/05/2025 1:55 PM EDT us Michelle Archuleta MD LAB BLOOD ORDERABLES Final Re sult [facility] [address] [place] [phone] * (ABNORMAL) CBC auto differential (05/05/2025 11:52 AM EDT) White Blood Count 8.1 4.8 - 10.8 X10*3/uL [facility] Red Blood Count 4.95 4.20 - 5.50 X10*6/uL [facility] Hemoglobin 14.2 12.0 - 16.0 g/dl [facility] Hematocrit 44.7 37.0 - 47.0 % [facility] Mean Corpuscular Volume 90.3 80.0 - 98.0 fL [facility] Mean Corpuscular Hemoglobin 28.7 27.0 - 33.0 pg [facility] Mean Corpuscular HGB Conc 31.8 31.0 - 35.0 g/dl [facility] Red Cell Distribution Width 13.3 11.0 - 16.0 % [facility] Platelet Count 368 160 - 400 X10*3/uL [facility] Mean Platelet Volume 12.9(H) 9.4 - 12.3 fL [facility] Neutrophils Percent Auto 41.2(L) 45 - 73 % [facility] Imm Gran Pct Auto 0.2 0.0 - 0.4 % [facility] Lymphocytes Percent Auto 50.6(H) 20 - 40 % [facility] Monocytes Percent Auto 5.7 2 - 11 % [facility] Eosinophils Percent Auto 1.9 0 - 4 % [facility] Basophils Percent Auto 0.4 0 - 2 % [facility] NRBC Pct Auto 0.0 0.0 - 0.2 /100WBC [facility] Neutrophils Absolute Auto 3.3 2.0 - 8.3 x10*3/uL [facility] Imm Gran Abs Auto 0.02 0.00 - 0.03 X10*3/uL [facility] Lymphocytes Absolute Auto 4.1 1.2 - 4.9 X10*3/uL [facility] Monocytes Absolute Auto 0.5 0.1 - 1.2 X10*3/uL [facility] Eosinophils Absolute Auto 0.2 0.0 - 0.4 X10*3/uL [facility] Basophils Absolute Auto 0.0 0.0 - 0.2 X10*3/uL [facility] NRBC Abs Auto 0.000 0.0 - 0.012 X10*3/uL [facility] Blood Venous blood specimen / Unknown 05/05/2025 11:52 AM EDT 05/05/2025 1:55 PM EDT us Michelle Archuleta MD LAB BLOOD ORDERABLES Final Re sult [facility] [address] [place] [phone] documented in this encounter Visit Diagnoses Diagnosis Breast cancer screening by mammogram- Primary Encounter for immunization Irregular periods Anxiety Anxiety state, unspecified Colon cancer screening Special screening for malignant neoplasms, colon Hemangioma of liver Hemangioma of other sites documented in this encounter Additional Health Concerns Assessment Noted Time PHQ-9 Depression Total Score: 7 05/05/20 25 11:37 AM EDT documented as of this encounter Care Teams Gray Tender Relationship Specialty Start Date End Date Michelle Archuleta MD [address] [place] [phone] PCP - General Family Medicine 07/08/18 documented as of this encounter
[2025-05-05 14:06] LABS: MANUAL DIFF FLAG NO
[2025-05-05 14:11] LABS: Hematocrit 44.7 % (37.0-47.0); Hemoglobin 14.2 g/dl (12.0-16.0); Imm Gran Abs Auto 0.02 X10*3/uL (0.00-0.03); Imm Gran Pct Auto 0.2 % (0.0-0.4); Lymphocytes Absolute Auto 4.1 X10*3/uL (1.2-4.9); Mean Corpuscular HGB Conc 31.8 g/dl (31.0-35.0); Mean Corpuscular Hemoglobin 28.7 pg (27.0-33.0); Mean Corpuscular Volume 90.3 fL (80.0-98.0); NRBC Abs Auto 0.000 X10*3/uL (0.0-0.012); NRBC Pct Auto 0.0 /100WBC (0.0-0.2); Platelet Count 368 X10*3/uL (160-400); Red Blood Count 4.95 X10*6/uL (4.20-5.50); White Blood Count 8.1 X10*3/uL (4.8-10.8)
[2025-05-05 14:28] LABS: Alanine Aminotransferase 29 U/L (0-31); Albumin Level 4.6 g/dL (3.5-5.0); Alkaline Phosphatase 54 U/L (39-117); Anion Gap 10 (12-20); Aspartate Amino Transferase 29 U/L (5-31); Blood Urea Nitrogen 12 mg/dL (9-16); Calcium 9.5 mg/dL (8.4-10.2); Carbon Dioxide 30 mmol/L (22-29); Chloride 103 mmol/L (96-108); Estimated Glomerular Filt Rate > 60; Potassium 3.7 mmol/L (3.3-5.1); Sodium 139 mmol/L (135-145); Total Protein 7.6 g/dL (6.5-8.0)
[2025-05-05 14:59] LABS: Folate 10.0 ng/mL (> or = 4.0); Vitamin B12 229 pg/mL (200-900)
--- OUTSIDE RECORDS SUMMARY | 2025-05-05 15:13 | XMS_ITS | Encounter Summary ---
Author Organization [employer] Address [address] [facility] [address] [place] [address] Care Team Providers Care Prorate Clerk Name Role Phone Michelle Archuleta MD Primary Care Provider [phone] Reason for Visit * Reason Onset Date Comments Med Refill 12/03/2024 Encounter Details Date Type Department Care Team ([facility] st Contact Info) Description 12/03/2024 Telephone [facility] MEDICINE [address] [place] [address] Michelle Archuleta MD [address] [place], [place] [phone] Med Refill Social History Tobacco Use Types Packs/Day Years Used Date Smoking Tobacco: Never Passive Smoke Exposure: Never Smokeless Tobacco: Never Alcohol Use Standard Drinks/Week Comments Never 0 (1 standard drink = 0.6 oz pur e alcohol) Depression Answer Date Recorded Patient Health Questionnaire-9 Score 9 07/05/2022 Housing Stability Answer Date Recorded What is your housing situation today? I have yoni larson 05/06/[address] you li ve. Do you have problems with any of the following? None of the above 05/06/2023 Food Insecurity Answer Date Recorded Within the past 12 months, y ou worried that your food would run out before you got money to buy more: Sometimes True 2022 Within the past 12 months,th e food you bought just didn't last and you didn't have enough money to get more: Never True 05/06/2023 Transportation Answer Date Recorded In the past 12 months, has l ack of transportation kept you from medical appts, meetings, work or from getting things needed for daily living? No 05/06/2023 Utilities Answer Date Recorded In the past 12 months, has t he electric, gas, oil or water company threatened to shut off services in your home? No 05/06/2023 Depression Answer Date Recorded Patient Health Questionnaire-2 Score 2 07/05/2022 Comments Unknown Sex and Gender Information Value Date Recorded Sex Assigned at Female 05/07/2022 10:15 AM EDT Legal Sex Female 10:15 AM EDT Gender Identity Female 05/07/2022 10:15 AM EDT Sexual Orientation Straight 05/07/2022 10 :15 AM EDT documented as of this encounter Miscellaneous Notes * Telephone Encounter - Michael Blas - 12/03/2024 12:30 PM EDT TC from pt requesting medication refill. Medications needing refill : clonazePAM (KlonoPIN) 0.5 MG tablet To be sent to: [facility]/pharmacy #[id number] - [place], [place] - [address] [place] [address] documented in this encounter Plan of Treatment Upcoming Encounters Date Type Department Care Team (Late st Contact Info) Description 05/10/2025 1:00 PM EST Telemedicine [facility] MED & PEDS [address] [place] [address] Neha Lerma RN [address] [place] [address] 07/06/2025 11:30 AM EST Office Visit [facility] MED & PEDS [address] [place] [address] Michelle Archuleta MD [address] [place] [address] documented as of this encounter Visit Diagnoses Not on filedocumented in this encounter Additional Health Concerns Assessment Noted Time PHQ-9 Depression Total Score: 9 07/05/20 22 1:49 PM EST documented as of this encounter Care Teams Prorate Clerk Relationship Specialty Start Date End Date Michelle Archuleta MD [address] [place] [address] PCP - General Family Medicine 07/08/18 documented as of this encounter
--- OUTSIDE RECORDS SUMMARY | 2025-05-05 15:13 | XMS_ITS | Encounter Summary ---
Author Organization [employer] Address [address] [facility] 7 [place] [address] Care Team Providers Care Plan Consultant Name Role Phone Michelle Archuleta MD Primary Care Provider [phone] Encounter Details Date Type Department Care Team (Late st Contact Info) Description 01/18/2023 Abstract [facility] MED & PEDS [address] [place] [address] Michelle Archuleta MD [address] [place] [address] Social History Tobacco Use Types Packs/Day Years Used Date Smoking Tobacco: Never Passive Smoke Exposure: Never Smokeless Tobacco: Never Alcohol Use Standard Drinks/Week Comments Never 0 (1 standard drink = 0.6 oz pur e alcohol) Depression Answer Date Recorded Patient Health Questionnaire-9 Score 9 07/05/2022 Depression Answer Date Recorded Patient Health Questionnaire-2 Score 2 07/05/2022 Comments Unknown Sex and Gender Information Value Date Recorded Sex Assigned at Female 05/07/2022 10:15 AM EDT Legal Sex Female 10:15 AM EDT Gender Identity Female 05/07/2022 10:15 AM EDT Sexual Orientation Straight 05/07/2022 10 :15 AM EDT documented as of this encounter Plan of Treatment Upcoming Encounters Date Type Department Care Team (Late st Contact Info) Description 05/10/2025 1:00 PM EST Telemedicine [facility] MED & PEDS [address] [place] [address] Neha Lrema, RN [address] [place], [place] [phone] 07/06/2025 11:30 AM EST Office Visit [facility] PEDS [address] [place] [address] Michelle Archuleta MD [address] [place] [address] documented as of this encounter Visit Diagnoses Not on filedocumented in this encounter Additional Health Concerns Assessment Noted Time PHQ-9 Depression Total Score: 9 07/05/20 22 1:49 PM EST documented as of this encounter Care Teams Plan Consultant Relationship Specialty Start Date End Date Michelle Archuleta MD [address] [place] [address] PCP - General Family Medicine 07/08/18 documented as of this encounter
--- OUTSIDE RECORDS SUMMARY | 2025-05-05 15:13 | XMS_ITS | Encounter Summary ---
Author Organization [employer] Address [address] [facility] [address] [place] [address] Care Team Providers Care Bite Block Maker Name Role Phone Michelle Archuleta MD Primary Care Provider [phone] Encounter Details Date Type Department Care Team (Latest Contact Info) Description 05/05/2025 Travel Social History Tobacco Use Types Packs/Day Years [...] is your housing situation today? I have yonisofiya larson 05/05/[address] you [...] AM EDT documented as of this encounter Functional Status * Over the [...] AM EDT [place] * Feeling tired or having little energy Answer Date of Assessment Author Several days 05/05/2025 11:37 AM EDT [place] * Poor appetite or overeating Answer Date of Assessment Author Several days 05/05/2025 11:37 AM EDT [place] * Feeling bad about yourself - or that you are a failure or have let yourself or your family down Answer Date of Assessment Author Several days 05/05/2025 11:37 AM EDT [place] * Trouble concentrating on things, such as reading the newspaper or watching television Answer Date of Assessment Author Several days 05/05/2025 11:37 AM EDT [place] * Moving or speaking so slowly that other people could have noticed? Or the opposite - being so fidgety or restless that you have been moving around a lot more than usual. Answer Date of Assessment Author Not at all 05/05/2025 11:37 AM EDT [place] * Thoughts that you would be better off or hurting yourself in some way Answer Date of Assessment Author Not at all 05/05/2025 11:37 AM EDT [place] * Patient Health Questionnaire-9 Score Answer Date of Assessment Author 7 05/05/2025 11:37 AM EDT [place] documented as of this encounter Plan of Treatment Upcoming Encounters Date Type Department Care Team (Late st Contact Info) Description 05/10/2025 1:00 PM EST Telemedicine [facility] MED & PEDS [address] [place] [address] Neha Lerma RN [address] [place] [address] 07/06/2025 11:30 AM EST Office Visit [facility] MED & PEDS [address] [place] [address] Michelle Archuleta MD [address] [place] [address] documented as of this encounter Visit Diagnoses Not on filedocumented in this encounter Additional Health Concerns Assessment Noted Time PHQ-9 Depression Total Score: 7 05/05/20 25 11:37 AM EDT documented as of this encounter Care Teams Bite Block Maker Relationship Specialty Start Date End Date Michelle Archuleta MD [address] [place] [address] PCP - General Family Medicine 07/08/18 documented as of this encounter
--- OUTSIDE RECORDS SUMMARY | 2025-05-05 15:13 | XMS_ITS | Encounter Summary ---
Author Organization [employer] Address [address] [facility] [address] [place] [address] Care Team Providers Care [employer] Name Role Phone Michelle Archuleta MD Primary Care Provider [phone] Reason for Visit * Reason Onset Date Comments Med Refill 03/31/2025 Encounter Details Date Type Department Care Team (Late st Contact Info) Description 03/31/2025 Telephone [facility] MEDICINE [address] [place] [address] iMchelle Archuleta MD [address] [place], [place] [phone] Med Refill Social History Tobacco Use Types [...] encounter Miscellaneous Notes * Telephone Encounter - Cecil Nicole - 03/31/2025 3:39 PM EDT TC from pt requesting medication refill. Medications needing refill : clonazePAM (KlonoPIN) 0.5 MG tablet To be sent to: [facility]/pharmacy #[id number] - [place], [place] - [address] [place] [address] documented in this encounter Plan of Treatment Upcoming Encounters Date Type Department Care Team (Late st Contact Info) Description 05/10/2025 1:00 PM EST Telemedicine [facility] MED & PEDS [address] [place] [address] Neha Lerma RN [address] [place] [address] 07/06/2025 11:30 AM EST Office Visit [facility] MED & PEDS [address] [place] [address] Michelle Archuleta MD [address] [place] [address] documented as of this encounter Visit Diagnoses Not on filedocumented in this encounter Additional Health Concerns Assessment Noted Time PHQ-9 Depression Total Score: 9 07/05/20 22 1:49 PM EST documented as of this encounter Care Teams [employer] Relationship Specialty Start Date End Date Michelle Archuleta MD [address] [place] [address] PCP - General Family Medicine 07/08/18 documented as of this encounter
--- OUTSIDE RECORDS SUMMARY | 2025-05-05 15:13 | XMS_ITS | Encounter Summary ---
Author Organization [employer] Address [address] [facility] [address] [place] [address] Care Team Providers Care Public Address System Mechanic Name Role Phone Michelle Archuleta MD Primary Care Provider [phone] Reason for Referral * Imaging (Routine) - Closed Specialty Diagnoses / Procedures Referred By Pete reno Referred To Contact Diagnoses Hemangioma of liver Procedures US Abdomen Limited Liver Michelle Archuleta MD [address] [place] [address] Phone: tel: fax: [facility] [address] [place] [address] Phone: tel: fax: Referral ID Status Reason Start Date Expiration Date Visits Re quested Visits Authorized [id number] Closed 08/01/2022 01/28/2023 1 1 Encounter Details Date Type Department Care Team (Late st Contact Info) Description 08/01/2022 Orders Only [facility] MEDICINE [address] [place], [place] [phone] Michelle Archuleta MD [address] [place], [place] [phone] Hemangioma of liver (Primary Dx) Social History Tobacco Use Types Packs/Day Years Used Date Smoking Tobacco: Never Assessed Alcohol Use Standard Drinks/Week Comments Never 0 [...] Orientation Straight 05/07/2022 10 :15 AM EDT COVID-19 Exposure Response Date Recorded In the last 10 days, have yo u been in contact with someone who was confirmed or suspected to have Coronavirus/COVID-19? No / Unsure 07/31/2022 1:10 PM EST documented as of this encounter Plan of Treatment Upcoming Encounters Date Type Department Care Team ([facility] st Contact Info) Description 05/10/2025 1:00 PM EST Telemedicine [facility] MED & PEDS [address] [place] [address] Neha Lerma RN [address] [place] [address] 07/06/2025 11:30 AM EST Office Visit [facility] MED & PEDS [address] [place] [address] Michelle Archuleta MD [address] [place] [address] Scheduled Orders Name Type Priority Associated Diagnoses Orde r Schedule US Abdomen Limited Liver Imaging Routine Hemangioma of liver Expected: 08/01/2022 (Approximate), Expires: 08/01/2023 documented as of this encounter Visit Diagnoses Diagnosis Hemangioma of liver- Primary Hemangioma of other sites documented in this encounter Additional Health Concerns Assessment Noted Time PHQ-9 Depression Total Score: 9 07/05/20 22 1:49 PM EST documented as of this encounter Care Teams Public Address System Mechanic Relationship Specialty Start Date End Date Michelle Archuleta MD [address] [place] [address] PCP - General Family Medicine 07/08/18 documented as of this encounter
--- OUTSIDE RECORDS SUMMARY | 2025-05-05 15:13 | XMS_ITS | Clinical Summary ---
Author Organization [employer] Address [address] [facility] [address] [place] [address] Care Team Providers Care Chaser Helper Name Role Phone Michelle Archuleta MD Primary Care Provider [phone] Allergies Active Allergy Reactions Criticality Noted Date Comments Oxcarbazepine Rash Low 09/06/2010 Other reaction(s): unspecified Medications albuterol 108 (90 Base) MCG/ACT inhaler inhale 2 puff by inhalation route every 4 - 6 hours as needed 2 Active benzonatate (Tessalon) 100 MG capsule take 1 capsule by oral route 3 times every day as needed for cough as needed for cough 2 Active clotrimazole (Lotrimin) 1 % cream apply by topical route 2 times every day to the affected and surrounding areas of skin in the morning and evening 0 Active Diclofenac Sodium 1 % creamIndication s:Carpal tunnel syndrome of left wrist Apply 1 Tube topically 3 times daily. 100 g 3 2 Active salicylic acid 6 % gelIndications: Callus of hand APPLY TOPICALLY ONCE PER DAY 40 g 4 Active ammonium lactate (Lac-Hydrin) 12 % lotion Apply bid to skin 222 mL 3 4 Active cholecalciferol (D3 Super Strength) 50 MCG (1999 UT) capsule TAKE 1 CAPSULE BY MOUTH TWICE A DAY 180 capsule 3 4 Active FLUoxetine (PROzac) 20 MG capsuleIndicati ons:Anxiety state TAKE 1 CAPSULE (20 MG) BY MOUTH IN THE MORNING 30 capsule 5 5 Active hydroCHLOROthia zide (HYDRODiuril) 25 MG tablet TAKE 1 TABLET BY MOUTH EVERY DAY 90 tablet 5 Active clonazePAM (KlonoPIN) 0.5 MG tabletIndicatio ns:MAT MAKER checked 06/12/22 Take 1 tablet (0.5 mg) by mouth 2 times daily. 56 tablet 5 Active Active Problems Problem Noted Date Diagnosed Date Long-term current use of benzodiazepine 12/09/19 25 Endometriosis 12/07/2022 Hydronephrosis 12/07/2022 Cervical intraepithelial neoplasia grade 1 01/20 Carpal tunnel syndrome 09/26/2015 Gallbladder calculus 01/19/2014 Hemangioma of liver 01/19/2014 Chronic nonalcoholic liver disease 02/29/2012 Allergic rhinitis 10/25/2011 Anxiety state 10/25/2011 Benign essential hypertension 10/25/2011 Depressive disorder 10/25/2011 Irregular periods 10/25/2011 Obesity 10/25/2011 Pneumonia due to organism 10/25/2011 Encounters Date Type Department Care Team Description 05/05/2025 11:00 AM EDT Office Visit [facility] [address] [place] [address] Michelle Archuleta MD Breast cancer screening by mammogram (Primary Dx); Encounter for immunization; Irregular periods; Anxiety; Colon cancer screening; Hemangioma of liver 05/05/2025 Patient Outreach [address] [address] Michelle Archuleta MD Care Coordination (CHW outreach for SDOH PT-1 and food needs-referral completed /) 05/05/2025 Travel 05/03/2025 Telephone [facility] [address] [place] [address] Michelle Archuleta MD Chart Prep 04/01/2025 Refill [facility] [address] [place] [address] Michelle Archuleta MD Mood disorder (CMS/HCC) 03/31/2025 Telephone [facility] [address] [place] [phone] Michelle Archuleta MD Med Refill 03/01/2025 1:00 PM EDT Telemedicine [facility] [address] [place] [address] Neha Lerma RN Anxiety 03/01/2025 Travel 02/22/2025 Telephone [facility] [address] [facility] [place] [address] Neha Lerma RN 02/22/2025 Telephone [facility] [address] [facility] [place] [address] Neha Lerma, RN Appointment Request 02/22/2025 Travel from Last 3 Months Immunizations Immunization Administration Dates Next Due Hep B, adult 09/13/1998,05/12/1998,04/06/1998 Influenza injectable quadriv alent IIV4 with preservative 04/03/2018,06/27/2017 Influenza injectable quadriv alent preservative free 05/24/2022,05/18/2021,06/09/2020,2018,07/26/2016 Influenza, Split (incl. more fied surface antigen) 03/23/2013,04/03/2012 Influenza, seasonal, injecta ble, preservative free 05/05/2025 Moderna Covid-19 Vaccine 12+ 07/11/2021,12/09/19 21,11/09/2020 Pfizer Covid-19 Vaccine 12+ 07/11/2021,,10/28/2020 TD (adult), 2 Lf tetanus tox oid, preservative free, adsorbed 07/10/1999 Tdap 01/05/2014,12/06/2013,03/23/2013 Social History Tobacco Use Types Packs/Day Years Used Date Smoking Tobacco: Never Passive Smoke Exposure: Never Smokeless Tobacco: Never Tobacco Cessation:Counseling Given: Not Answered Alcohol Use Standard Drinks/Week Comments Never 0 [...] Orientation Straight 05/07/2022 10 :15 AM EDT Last Filed Vital Signs Vital Sign Reading Time Taken Comments Blood Pressure 126/90 05/05/2025 11:09 AM EDT Pulse 80 05/05/2025 11:09 AM EDT Temperature 36.8 C (98.3 F) 05/05/2025 11:09 AM EDT Respiratory Rate 20 05/05/2025 11:09 AM EDT Oxygen Saturation 97% 11/27/2023 11:35 AM EDT Inhaled Oxygen Concentration - - Weight 96.2 kg (212 lb) 05/05/2025 11:09 AM EDT Height 152.5 cm (5' 0.05 ) 11/27/2023 11:35 AM E DT Body Mass Index 41.33 11/27/2023 11:35 AM EDT Plan of Treatment Upcoming Encounters Date Type Department Care Team ([facility] Contact Info) Description 05/10/2025 1:00 PM EST Telemedicine [facility] [address] [place] [address] Neha Lerma, RN [address] [place] [address] 07/06/2025 11:30 AM EST Office Visit [facility] [address] [place] [address] Michelle Archuleta MD [address] [place] [address] Health Maintenance Due Date Last Done Comments CT Colonography 1980 Colonoscopy 1978 Colorectal Cancer Screening 1978 FIT DNA/Cologuard 1978 FIT 1980 FOBT 1980 Sigmoidoscopy 1980 Family Planning (PISQ) 1993 Hepatitis A Vaccines (1 of 2 - Risk 2-dose series) 1997 Pneumococcal Vaccine: Pediatrics (0 to 5 Years) and At-Risk Patients (6 to 49) Years (1 of 2 - PCV) 1997 DTaP/Tdap/Td Vaccines (4 - Td or Tdap) 01/06/2024 01/05/2014, 12/06/2013, 03/23/2013, Additional history exists COVID-19 Vaccine ( season) 2025 10/04/2022, 07/11/2021, 07/11/2021, Additional history exists Mammogram 10/17/2025 10/18/2023, 07/26/2022 Pap Smear 03/25/2026 03/25/2023, 03/08, 03/25/2023, Additional history exists Alcohol/Substance Use Screening 05/05/2026 05/05/2025 Depression Screening 05/05/2026 05/05/2025, 05/05/20 25 Disability Screening 05/05/2026 05/05/2025 SDOH Screening 05/05/2026 05/05/2025 Tobacco Screening 05/05/2026 05/05/2025 Cervical Cancer Screening 03/25/2028 HPV/Cotest 03/25/2028 03/25/2023, 09/05, 08/04/2019 Zoster Vaccines (1 of 2) 2028 Lipid Panel 11/26/2028 11/27/2023, 09/2022, 06/08/2021, Additional history exists RSV Patients and Patients Aged 60 years or older (1 - 1-dose 75+ series) 2053 Hepatitis B Vaccines Completed 09/13/1998, 05/12/1998, 04/06/1998 HIV Screening Completed 06/08/2021, 08/04/2019 Hepatitis C Screening Completed 06/08/2021 Influenza Vaccine Completed 05/05/2025, , 05/18/2021, Additional history exists HIB Vaccines Aged Out No longer eligi ble based on patient's age to complete this topic HPV Vaccines Aged Out No longer eligi ble based on patient's age to complete this topic IPV Vaccines Aged Out No longer eligi ble based on patient's age to complete this topic Meningococcal B Vaccine Aged Out No l onger eligible based on patient's age to complete this topic Meningococcal Vaccine Aged Out No kaila augustine eligible based on patient's age to complete this topic RSV under 20 months Aged Out No longe r eligible based on patient's age to complete this topic Rotavirus Vaccines Aged Out No longer eligible based on patient's age to complete this topic Procedures Procedure Name Priority Date/Time Associated Diagnosis Comments HEMOGLOBIN A1C Routine 05/05/2025 11:52 AM EDT Breast cancer screening by mammogram Encounter for immunization Irregular periods VITAMIN B12/FOLATE, SERUM PANEL Routine 05/05/2025 11:52 AM EDT Breast cancer screening by mammogram Encounter for immunization Irregular periods VITAMIN D,25-OH,TOTAL,IA Routine 05/05/2025 11:52 AM EDT [...] by mammogram Encounter for immunization Irregular periods LIPID PANEL, STANDARD Routine 11/27/2023 12:39 PM EDT Pre-diabetes BI MAMMOGRAM SCREENING TOMOSYNTHESIS BILATERAL Routine 10/18/2023 11:33 AM EDT HPV MRNA E6/E7 REFLEX TO HPV 16, 18/45 Routine 03/25/2023 10:07 AM EDT PAP SMEAR Routine 03/25/2023 10:07 AM EDT ZZZ HISTORICAL HEPATITIS C AB W/REFL TO HCV RNA, QN, PCR Routine 06/08/2021 3:38 PM EST HIV 1/2 ANTIGEN/ANTIBODY, FOURTH GENERATION W/RFL Routine 06/08/2021 3:38 PM EST from Last 3 Months or Most Recently Relevant to Health Maintenance Results * Vitamin D, 25-Hydroxy, Total, Immunoassay (05/05/2025 11:52 AM EDT) Vitamin D 25-OH Total 90.2 >30 ng/mL [facility] Comment: Health Based Reference Values*< 20 ng/mL Klqvaxolv92-43 ng/mL Insufficient> 30 ng/mL Sufficient*Franklyn GARCIA. N [...] ORDERABLES Final Re sult Performing Organization Address [facility] de Phone Number [facility] [address] [place] [phone] * Vitamin B12/Folate, Serum Panel (05/05/2025 11:52 AM EDT) Vitamin B12 229 200 - 900 pg/mL [facility] Comment:NORMAL 200-900 PG/ML INDETERMINATE 160-199 PG/ML DEFICIENT < 160 PG/ML Folate 10.0 > or = 4.0 ng/mL [facility] Comment:Reference Values:> o r = 4.0 [...] ORDERABLES Final Re sult Performing Organization Address [facility] Co de Phone Number [facility] [address] [place] [phone] * TSH W/Reflex to FT4 (05/05/2025 11:52 AM EDT) TSH reflex Free T4 3.53 0.32 - 4.0 uIU/mL [facility] Blood Venous blood specimen / Unknown 05/05/2025 11:52 AM EDT 05/05/2025 1:55 PM EDT us Michelle Archuleta MD LAB BLOOD ORDERABLES Final Re sult [facility] [address] [place] [address] [phone] * (ABNORMAL) CBC auto differential (05/05/2025 11:52 AM EDT) White Blood Count 8.1 4.8 - 10.8 X10*3/uL [facility] Red Blood Count 4.95 4.20 - 5.50 X10*6/uL [facility] Hemoglobin 14.2 12.0 - 16.0 g/dl [facility] Hematocrit 44.7 37.0 - 47.0 % [facility] Mean Corpuscular Volume 90.3 80.0 - 98.0 fL [facility] Mean Corpuscular Hemoglobin 28.7 27.0 - 33.0 pg [facility] Mean Corpuscular HGB Conc 31.8 31.0 - 35.0 g/dl [facility] Red Cell Distribution Width 13.3 11.0 - 16.0 % [facility] Platelet Count 368 160 - 400 X10*3/uL [facility] Mean Platelet Volume 12.9(H) 9.4 - 12.3 fL [facility] Neutrophils Percent Auto 41.2(L) 45 - 73 % [facility] Imm Gran Pct Auto 0.2 0.0 - 0.4 % [facility] Lymphocytes Percent Auto 50.6(H) 20 - 40 % [facility] Monocytes Percent Auto 5.7 2 - 11 % [facility] Eosinophils Percent Auto 1.9 0 - 4 % [facility] Basophils Percent Auto 0.4 0 - 2 % [facility] NRBC Pct Auto 0.0 0.0 - 0.2 /100WBC [facility] Neutrophils Absolute Auto 3.3 2.0 - 8.3 x10*3/uL [facility] Imm Gran Abs Auto 0.02 0.00 - 0.03 X10*3/uL [facility] Lymphocytes Absolute Auto 4.1 1.2 - 4.9 X10*3/uL [facility] Monocytes Absolute Auto 0.5 0.1 - 1.2 X10*3/uL [facility] Eosinophils Absolute Auto 0.2 0.0 - 0.4 X10*3/uL [facility] Basophils Absolute Auto 0.0 0.0 - 0.2 X10*3/uL [facility] NRBC Abs Auto 0.000 0.0 - 0.012 X10*3/uL [facility] Blood Venous blood specimen / Unknown 05/05/2025 11:52 AM EDT 05/05/2025 1:55 PM EDT us Michelle Archuleta MD LAB BLOOD ORDERABLES Final Re sult Performing Organization Address [facility]/ZIP Co de Phone Number [facility] [address] [place] [phone] * Hemoglobin A1c (05/05/2025 11:52 AM EDT) Hemoglobin A1c 6.0 <6.0 % [facility] Comment:Hemoglobin A1C Refer ence Range Adults: 4.8 - 6.0 % Non diabetic: < 6.0 % Goal: < 7.0 %Additional Action Suggested: > 8.0 %Note: Hemoglobin A1c results are invalid for patients with abnormal amounts of HbF. Blood transfusions may impact the HbA1c concentration in the patient sample. Estimated Average Glucose 126 mg/dL [facility] Comment:eAG = Estimated ave rage glucose which is %A1C expressed asaverage glucose, using the formula of the S5R-ZjujvdsVlbwekp Glucose study (ADAG), Diabetes Care, Vol.31,#8,Feb. 2007 Blood Venous blood specimen / Unknown 05/05/2025 11:52 AM EDT 05/05/2025 1:55 PM EDT us Michelle Archuleta MD LAB BLOOD ORDERABLES Final Re sult [facility] [address] [place] [address] [phone] * (ABNORMAL) Comprehensive Metabolic Panel (05/05/2025 11:52 AM EDT) Sodium 139 135 - 145 mmol/L [facility] Potassium 3.7 3.3 - 5.1 mmol/L [facility] Chloride 103 96 - 108 mmol/L [facility] Carbon Dioxide 30(H) 22 - 29 mmol/L [facility] Anion Gap 10(L) 12 - 20 [facility] Urea Nitrogen (BUN) 12 9 - 16 mg/dL [facility] Creatinine, Serum 0.61 0.5 - 1.4 mg/dL [facility] Estimated Glomerular Filt Rate >60 [facility] Comment:Chronic Kidney Disea se: Estimated GFR < 60 mL/min/1.22d0Hgutcr Kidney Disease: Estimated GFR < 15 mL/min/1.73m2 Glucose 106 60 - 115 mg/dL [facility] Calcium 9.5 8.4 - 10.2 mg/dL [facility] Bilirubin, Total 0.4 0.0 - 1.0 mg/dL [facility] Aspartate Amino Transferase 29 5 - 31 U/L [facility] Alanine Aminotransferase 29 0 - 31 U/L [facility] Total Protein 7.6 6.5 - 8.0 g/dL [facility] Albumin Level 4.6 3.5 - 5.0 g/dL [facility] Alkaline Phosphatase 54 39 - 117 U/L [facility] Blood Venous blood specimen / Unknown 05/05/2025 11:52 AM EDT 05/05/2025 1:55 PM EDT us Michelle Archuleta MD LAB BLOOD ORDERABLES Final Re sult [facility] [address] [place] [phone] [phone] * (ABNORMAL) Lipid Panel, Standard (11/27/2023 12:39 PM EDT) Triglycerides 84 <150 mg/dL [facility] Comment:Desirable Triglyceri de: less than 150 mg/dLBorderline High Triglyceride 150-199 mg/dLHigh Triglyceride: 200-499 mg/dLVery High Triglyceride: greater than or equal to 5OO mg/dL Cholesterol 189 <200 mg/dL [facility] Comment:Desirable Cholestero l: less than 200 mg/dLBorderline High Cholesterol: 200-239 mg/dLHigh Cholesterol: greater than 239 mg/dL LDL Cholesterol Calculated 122(H) <100 mg/dL [facility] Comment:Desirable LDL: less than 100 mg/dLNear Optimal/Above Optimal LDL: 110- 129 mg/dLBorderline High LDL: 130-159 mg/dLHigh LDL: 160-189 mg/dLVery High LDL: greater than or equal to 190 mg/dL HDL Cholesterol 51 >40 mg/dL [facility] Comment:Desirable HDL: great er than 40 mg/dL Note: This HDL assay may give artificially low results in patients with liver disease. Blood Venous blood specimen / Unknown 11/27/2023 12:39 PM EDT 11/27/2023 2:40 PM EDT us Michelle Archuleta MD LAB BLOOD ORDERABLES Final Re sult [facility] [address] [place] [address] [phone] * BI Mammogram Screening Tomosynthesis Bilateral (10/18/2023 11:33 AM EDT) Anatomical Region Laterality Modality Breast Bilateral Mammography 10/18/2023 11:3 3 AM EDT Narrative 11/14/2023 10:15 PM EDT [facility] [address] [place] [address] Mammography Report Signed Patient: Andira Rasmussen MR#: [id number] : 1980 Acct:[id number] Age/Sex: 43 / F ADM Date: 10/18/23 Loc: HO.MAMMO Attending Dr: Michelle Archuleta MD Ordering Physician: Michelle Archuleta MD Results: 1Ne gative Date of Service: 10/18/23 Follow Up: 1 Year From Orig inal Mammogram Procedure(s): MM tomosynthesis screening BI Accession Number(s): [id number] cc: Michelle Archuleta MD EXAMINATION: MM SCREENING DIGITAL BREAST TOMOSYNTHESIS, BILATERAL CLINICAL INFORMATION: Screening. Asymptomatic. COMPARISON: Mammography: This study is compared with prior exams dating back to 2022. TECHNIQUE: Digital breast tomosynthesis is performed in both the craniocaudal and mediolateral oblique views along with computer-aided detection (CAD). Synthesized 2D images are generated from the tomosynthesis. FINDINGS: There are scattered areas of fibroglandular density (ACR BI-RADS breast composition Category b). There are no significant masses, abnormal calcifications, or other abnormalities. MM/MM tomosynthesis screening BI IMPRESSION: No mammographic evidence of malignancy. ASSESSMENT: BI-RADS BI-RADS 1 - Negative RECOMMENDATION: Routine annual mammography screening. 1 year F/U This examination should not preclude the clinical evaluation of a suspicious palpable abnormality. This patient's information was entered into a reminder system with a target due date for their next mammogram. Dictated By: Vandana Encinas MD Signed By: <Electronically signed by Vandana Encinas MD in OV> 11/14/23 2211 DD/ 1133 TD/TT: Pattern Storage Clerk: Procedure Note Donotuseinterpreter, Image - 11/14/2023 [facility] [address] [place] [address] Mammography Report Signed Patient: Andria RasmussenMR#: [id number] : 1980Acct:[id number] Age/Sex: 43 / FADM Date: 10/18/23 Loc: ANA Attending Dr: Michelle Archuleta MD Ordering Physician: Michelle Archuleta MDResults: 1Ne gative Date of Service: 10/18/23Follow Up: 1 Year From Orig inal Mammogram Procedure(s): MM tomosynthesis screening BI Accession Number(s): [id number] cc: Michelle Archuleta MD EXAMINATION: MM SCREENING DIGITAL BREAST TOMOSYNTHESIS, BILATERAL CLINICAL INFORMATION: Screening. Asymptomatic. COMPARISON: Mammography: This study is compared with prior exams dating back to 2022. TECHNIQUE: Digital breast tomosynthesis is performed in both the craniocaudal and mediolateral oblique views along with computer-aided detection (CAD). Synthesized 2D images are generated from the tomosynthesis. FINDINGS: There are scattered areas of fibroglandular density (ACR BI-RADS breast composition Category b). There are no significant masses, abnormal calcifications, or other abnormalities. MM/MM tomosynthesis screening BI IMPRESSION: No mammographic evidence of malignancy. ASSESSMENT: BI-RADS BI-RADS 1 - Negative RECOMMENDATION: Routine annual mammography screening. 1 year F/U This examination should not preclude the clinical evaluation of a suspicious palpable abnormality. This patient's information was entered into a reminder system with a target due date for their next mammogram. Dictated By: Vandana Encinas MD Signed By: <Electronically signed by Vandana Encinas MD in OV> 11/14/23 2211 DD/ 1133 TD/TT: Pattern Storage Clerk: Michelle Archuleta MD [facility] BI PROCEDURES Edited Resu lt - Final * HPV mRNA E6/E7 w/Reflex to HPV Genotypes 16, 18/45 (03/25/2023 10:07 AM EDT) HPV nRNA E6/E7 Not Detected Not Detected [facility] Comment:Methodology: Transcr iption-Mediated AmplificationThis assay detects E6/E7 viral messenger RNA (mRNA) from 14high-risk HPV types (16,18,31,33,35,39,45,51,52,56,58,59,66,68).Cervical sources are required for HPV testing.If a vaginal source from a patient who has had atotal hysterectomy with removal of cervix wassubmitted, please contact the testing laboratoryfor alternative testing options.For additional information, please refer tohttp://education.Invajo/faq/LJL095u0(This link if provided for information/educational purposes only.)THIS TEST WAS PERFORMED AT:[facility] [place] [phone] CEDILLO MD HPV mRNA E6/E7 TNP [facility] HPV 16 RNA TNP [facility] HPV 18/45 RNA TNP [facility] 03/25/2023 10:0 7 AM EDT 03/26/2023 8:45 AM EDT us [facility] External Provider LAB CYT OLOGY ORDERABLES Final Result [facility] [address] [place] [address] [phone] * Pap Smear (03/25/2023 10:07 AM EDT) 03/25/2023 10:0 7 AM EDT 03/26/2023 8:45 AM EDT Narrative [facility] - 04/04/2023 8:39 AM EDT ----- ------- Name: Andria Rasmussen Age/Sex: 42/F : 1980 Unit#: [id number] Attend Dr: Jagdeep Greenberg MD Re03/25/23 Status: DEP REF Location: LNP Disch: ----- ------- SPEC : [id number] RECD: 03/26/23 STATUS: CYN SCHROEDER NUM: [id number] KATHIA: 03/25/23-[address] [facility] [address]: Jagdeep Greenberg MD ENTERED: 03/26/23 SP TYPE: Pap Smr OTHR DR: Michelle Archuleta MD ORDERED: Pap Smear Interpretation Satisfactory for evaluation. No endocervical cells seen. Negative for intraepithelial lesion or malignancy. Coccobacilli consistent with shift in vaginal vilma. HPV mRNA E6/E7: NOT DETECTED This assay detects E6/E7 viral messenger RNA (mRNA) from 14 high-risk HPV types (16, 18, 31, 33, 35, 39, 45, 51, 52, 56, 58, 59, 66, 68) HPV testing performed by [facility], [place], [place]. See reference laboratory portion of the EMR for entire report. Clinical Information LMP: 03/14/23 Previous PAP test: 08/05/19, ASCUS +HPV Material Received ThinPrep-Cervical Copies To: Michelle Archuleta MD [address] [place] [phone] Jagdeep Greenberg MD [address] [place], [place] [address] [address] [address] ----- ------- Signed (signature on file) Hieu Huynh MD 04/04/23 0839 ----- ------- END OF REPORT [facility] External Provider LAB CYT OLOGY ORDERABLES Final Result Performing Organization Address City/[facility]/ZIP Co de Phone Number [facility] [address] [place] [address] [phone] * HEPATITIS C AB W/REFL TO HCV RNA, QN, PCR (06/08/2021 3:38 PM EST) HEPATITIS C ANTIBODY NON-REACT GORAN NON-REACT GORAN [facility] INDEX 0.02 <1.00 [facility] Comment: HCV antibody was non-reactive. There is no laboratory evidence of HCV infection. In most cases, no further action is required. However, if recent HCV exposure is suspected, a test for HCV RNA (test code 39207) is suggested. For additional information please refer to http://Sensipass.Invajo/faq/GHC64z1 (This link is being provided for informational/ educational purposes only.) 06/08/2021 3:38 PM EST Michelle Archuleta MD HISTORICAL/NON ORDERABLE LABS Final Result Performing Organization Address [facility] Co de Phone Number [facility] [address] * HIV 1/2 ANTIGEN/ANTIBODY,FOURTH GENERATION W/RFL (06/08/2021 3:38 PM EST) HIV-1/2 ANTIGEN AND ANTIBODIES, 4TH GENERATION W/ REFLEX NON-REACT GORAN NON-REACT GORAN [facility] Comment: HIV-1 antigen and HIV-1/HIV-2 antibodies were not detected. There is no laboratory evidence of HIV infection. PLEASE NOTE: This information has been disclosed to you from records whose confidentiality may be protected by state law. If your state requires such protection, then the state law prohibits you from making any further disclosure of the information without the specific written consent of the person to whom it pertains, or as otherwise permitted by law. A general authorization for the release of medical or other information is NOT sufficient for this purpose. For additional information please refer to http://education.FlowPay.TOBESOFT/faq/IUA658 (This link is being provided for informational/ educational purposes only.) The performance of this assay has not been clinically validated in patients less than 2 years old. 06/08/2021 3:38 PM EST Michelle Archuleta MD LAB BLOOD ORDERABLES Final Re sult [facility] [address] from Last 3 Months or Most Recently Relevant to Health Maintenance [id number] [address] [place] [id number] Care Teams Chaser Helper Relationship Specialty Start Date End Date Michelle Archuleta MD [address] [facility] [address] PCP - General Family Medicine 07/08/18
--- OUTSIDE RECORDS SUMMARY | 2025-05-05 15:13 | XMS_ITS ---
Author Organization [employer] Address [address] [place] [id number] Care Team Providers Care Manager Pool Name Role Phone Michelle Archuleta MD Primary Care Provider [phone] MANAGER PSYCHOLOGY Status:Enrolled (Active) Start date:10/16/2022 Enrollment date:10/16/2022 Case Team Name Relationship Phone Neha Lerma RN(Responsible Staff) Registered Nurse Continued Care and Services Coordination
--- OUTSIDE RECORDS SUMMARY | 2025-05-05 15:13 | XMS_ITS | Encounter Summary ---
Author Organization [employer] Address [address] [facility] 7 [place] [address] Care Team Providers Care House Registry Rn Name Role Phone Michelle Archuleta MD Primary Care Provider [phone] Reason for Visit * Reason Onset Date Comments Chart Prep 05/03/2025 Encounter Details Date Type Department Care Team ([facility] st Contact Info) Description 05/03/2025 Telephone [facility] CHC MED & PEDS [address] [place] [address] Michelle Archuleta MD [address] [place] [address] Chart Prep Social History Tobacco Use Types Packs/Day Years [...] encounter Miscellaneous Notes * Telephone Encounter - Chantale Gonzales [place] - 05/03/2025 2:48 PM EDT Chart Prep Labs: not applicable Images: done Referrals: not applicable Vaccines due: Covid, Flu, PCV20, Tdap, and Hep A Screenings: colonoscopy and LMP Overdue care gaps: SBIRT, SDOH, PHQ-9, Oral health screening, Disability screen, and Tobacco documented in this encounter Plan of Treatment Upcoming Encounters Date Type Department Care Team ([facility] st Contact Info) Description 05/10/2025 1:00 PM EST Telemedicine [facility] MED & PEDS [address] [place] [address] Neha Lerma RN [address] [place] [address] 07/06/2025 11:30 AM EST Office Visit [facility] MED & PEDS [address] [place] [address] Michelle Archuleta MD [address] [place] [address] documented as of this encounter Visit Diagnoses Not on filedocumented in this encounter Additional Health Concerns Assessment Noted Time PHQ-9 Depression Total Score: 9 07/05/20 22 1:49 PM EST documented as of this encounter Care Teams House Registry Rn Relationship Specialty Start Date End Date Michelle Archuleta MD [address] [place] [address] PCP - General Family Medicine 07/08/18 documented as of this encounter
--- OUTSIDE RECORDS SUMMARY | 2025-05-05 15:13 | XMS_ITS | Encounter Summary ---
Author Organization [employer] Address [address] [facility] 7 [place] [address] Care Team Providers Care Spanish Literature Professor Name Role Phone Michelle Archuleta MD Primary Care Provider [phone] Reason for Visit * Reason Onset Date Comments Appointment Request 09/06/2022 Encounter Details Date Type Department Care Team ([facility] st Contact Info) Description 09/06/[address] [facility] MEDICINE [address] [place] [address] Michelle Archuleta MD [address] [place] [address] Appointment Request Social History Tobacco Use Types Packs/Day Years [...] encounter Miscellaneous Notes * Telephone Encounter - Checo Lilly - 09/06/2022 12:56 PM EST Tc from pt requesting to r/s appt on 09/05/22 ( SLACKLINE OPERATOR televisit ) Please contact pt at [phone] documented in this encounter Plan of Treatment Upcoming Encounters Date Type Department Care Team (Late st Contact Info) Description 05/10/2025 1:00 PM EST Telemedicine [facility] MED & PEDS [address] [place] [address] Neha Lerma RN [address] [place] [address] 07/06/2025 11:30 AM EST Office Visit [facility] MED & PEDS [address] [place] [address] Michelle Archuleta MD [address] [place] [address] documented as of this encounter Visit Diagnoses Not on filedocumented in this encounter Additional Health Concerns Assessment Noted Time PHQ-9 Depression Total Score: 9 07/05/20 22 1:49 PM EST documented as of this encounter Care Teams Spanish Literature Professor Relationship Specialty Start Date End Date Michelle Archuleta MD [address] [place] [address] PCP - General Family Medicine 07/08/18 documented as of this encounter
--- OUTSIDE RECORDS SUMMARY | 2025-05-05 15:13 | XMS_ITS | Encounter Summary ---
Author Organization [employer] Address [address] [facility] 7 [place] [address] Care Team Providers Care Sales Management Trainee Name Role Phone Michelle Archuleta MD Primary Care Provider [phone] Reason for Visit * Reason Onset Date Comments Med Refill 02/25/2024 Encounter Details Date Type Department Care Team (Late st Contact Info) Description 02/25/2024 Telephone [facility] MEDICINE [address] [place] [address] Michelle Archuleta MD [address] [place], [place] [phone] Med Refill Social History Tobacco Use Types [...] encounter Miscellaneous Notes * Telephone Encounter - Stacey Nielson - 02/25/2024 3:11 PM EDT TC from pt requesting medication refill. Medications needing refill : clonazePAM (KlonoPIN) 0.5 MG tablet To be sent to: [facility] documented in this encounter Plan of Treatment Upcoming Encounters Date Type Department Care Team (Late st Contact Info) Description 05/10/2025 1:00 PM EST Telemedicine [facility] MED & PEDS [address] [place] [address] Neha Lerma RN [address] [place] [address] 07/06/2025 11:30 AM EST Office Visit [facility] MED & PEDS [address] [place] [address] Michelle Archuleta MD [address] [place] [address] documented as of this encounter Visit Diagnoses Not on filedocumented in this encounter Additional Health Concerns Assessment Noted Time PHQ-9 Depression Total Score: 9 07/05/20 22 1:49 PM EST documented as of this encounter Care Teams Sales Management Trainee Relationship Specialty Start Date End Date Michelle Archuleta MD [address] [place] [address] PCP - General Family Medicine 07/08/18 documented as of this encounter
--- OUTSIDE RECORDS SUMMARY | 2025-05-05 15:13 | XMS_ITS | Encounter Summary ---
Author Organization [employer] Address [address] [place] [address] 7 [place] [address] Care Team Providers Care Wood Web Weaving Machine Operator Name Role Phone Michelle Archuleta MD Primary Care Provider [phone] Reason for Visit * Reason Comments Med Refill Encounter Details Date Type Department Care Team (Late st Contact Info) Description 10/11/2022 Refill [facility] CHC MED & PEDS [address] [place] [address] Agapito Thomas MD [address] [place] [address] Social History Tobacco Use Types Packs/Day Years [...] Info) Description 05/10/2025 1:00 PM EST Telemedicine [facility] CHC MED & PEDS [address] [place] [address] Neha Lerma RN [address] [place], [place] [phone] 07/06/2025 11:30 AM EST Office Visit [facility] CHC MED & PEDS [address] [place] [address] Michelle Archuleta MD [address] [place] [address] documented as of this encounter Visit Diagnoses Not on filedocumented in this encounter Additional Health Concerns Assessment Noted Time PHQ-9 Depression Total Score: 9 07/05/20 22 1:49 PM EST documented as of this encounter Care Teams Wood Web Weaving Machine Operator Relationship Specialty Start Date End Date Mcihelle Archuleta MD [address] [place] [address] PCP - General Family Medicine 07/08/18 documented as of this encounter
--- OUTSIDE RECORDS SUMMARY | 2025-05-05 15:13 | XMS_ITS | Encounter Summary ---
Author Organization [employer] Address [address] [facility] 7 [place] [address] Care Team Providers Care Scalping Machine Operator Name Role Phone Michelle Archuleta MD Primary Care Provider [phone] Reason for Visit * Reason Comments Care Coordination CHW outreach for SDO H PT-1 and food needs-referral completed Encounter Details Date Type Department Care Team (Latest Contact Info) Description 05/05/2025 Patient Outreach [facility] MEDICINE [address] [place] [address] Michelle Archuleta MD [address] [place], [place] [phone] Care Coordination (CHW outreach for SDOH PT-1 and food needs-referral completed /) Social History Tobacco Use Types Packs/Day Years [...] [place] documented as of this encounter Progress Notes * Tariq Dinero - 05/05/2025 1:12 PM EDT CHW Tariq Dinero, placed outbound call to patient for assistance with SDOH as a referral was received by the provider. Patient's name and were confirmed. Patient screened positive for the following SDOH food insecurities. Patient states family in on SNAP program at this time. CHW referral patient to the local list of pantries in the area for help. PT-1 requested was send out in behalf of patient for futures appt. Patient verbalizes understanding, and able to agree with plan to follow up.Patient educated on extended clinic hours on Mondays through Wednesdays, and Walk-In Urgent Care Located in [facility] of [facility]. Patient provided with after-hours line for [facility], , which offer night time triage service and option to transfer to information security risk analyst provider if needed. documented in this encounter Plan of Treatment Upcoming Encounters Date Type Department Care Team (Late st Contact Info) Description 05/10/2025 1:00 PM EST Telemedicine [facility] MED & PEDS [address] [place] [address] Neha Lerma, RN [address] [place] [address] 07/06/2025 11:30 AM EST Office Visit [facility] MED & PEDS [address] [place] [address] Michelle Archuleta MD [address] [place] [address] documented as of this encounter Visit Diagnoses Not on filedocumented in this encounter Additional Health Concerns Assessment Noted Time PHQ-9 Depression Total Score: 7 05/05/20 25 11:37 AM EDT documented as of this encounter Care Teams Scalping Machine Operator Relationship Specialty Start Date End Date Michelle Archuleta MD [address] [place] [address] PCP - General Family Medicine 07/08/18 documented as of this encounter
--- OUTSIDE RECORDS SUMMARY | 2025-05-05 15:13 | XMS_ITS | Clinical Summary ---
Author Organization [facility] Address [address] [place] [address] Care Team Providers Care Secretary Bookkeeper Name Role Phone Michelle Archuleta MD Primary Care Provider [phone] Surgical History Surgery Date Site/Laterality Comments SECTION PROCEDURE: HISTORICAL DELIVERY CHOLECYSTECTOMY PROCEDURE: LAPAROSCOPY, CHOLECYSTECTOMY Medical History Medical History Date Comments Hypertension DX:Hypertension Depression DX:Depression Anxiety DX:Anxiety Family History Relation Name Status Comments Grandparent colon cancer Social History Tobacco Use Types Packs/Day Years Used Date Smoking Tobacco: Never Alcohol Use Standard Drinks/Week Comments Not Asked 0 (1 standard drink = 0.6 oz pur e alcohol) Comments Unknown Sex and Gender Information Value Date Recorded Sex Assigned at Not on file Legal Sex Female 4:35 AM EST Gender Identity Not on file Sexual Orientation Not on file Obstetrics History Plan of Treatment Health Maintenance Due Date Last Done Comments Breast Cancer Screening 1978 DTaP,Tdap,and Td Vaccines (1 - Tdap) 1997 Hepatitis B Vaccines (1 of 3 - 19+ 3-dose series) 1997 Cervical Cancer Screening: P ap Smear 1999 Depression Screening 07/08/2024 COVID-19 Vaccine ( - 2023-2 5 season) 2025 Influenza Vaccine (#1) 2025 RSV Immunization Adult Patie nts (1 - 1-dose 75+ series) 2053 HIB Vaccines Aged Out No longer eligi ble based on patient's age to complete this topic HPV Vaccines Aged Out No longer eligi ble based on patient's age to complete this topic Hepatitis A Vaccines Aged Out No long er eligible based on patient's age to complete this topic IPV Vaccines Aged Out No longer eligi ble based on patient's age to complete this topic MMR Vaccines Aged Out No longer eligi ble based on patient's age to complete this topic Meningococcal ACWY Vaccine Aged Out N o longer eligible based on patient's age to complete this topic Meningococcal B Vaccine Aged Out No l onger eligible based on patient's age to complete this topic Pneumococcal Vaccine: Pediat rics (0 to 5 Years) and At-Risk Patients (6 to 49 Years) Aged Out No longer eligible b ased on patient's age to complete this topic RSV Immunization Patients Un shirley 20 months Aged Out No longer eligible b ased on patient's age to complete this topic Varicella Vaccines Aged Out No longer eligible based on patient's age to complete this topic Care Teams Secretary Bookkeeper Relationship Specialty Start Date End Date Michelle Archuleta MD [address] [place] [phone] PCP - General 04/19/15
--- OUTSIDE RECORDS SUMMARY | 2025-05-05 15:13 | XMS_ITS | Encounter Summary ---
Author Organization [employer] Address [address] [facility] 7[address] [place] [address] Care Team Providers Care Experiential Therapist Name Role Phone Michelle Archuleta MD Primary Care Provider [phone] Reason for Visit * Reason Comments Med Change Request Encounter Details Date Type Department Care Team ([facility] Contact Info) Description 10/31/2023 Refill [facility] CHC MED & PEDS [address] [place] [address] Michelle Archuleta MD [address] [place] [address] Callus of hand Social History Tobacco Use Types Packs/Day Years [...] Description 05/10/2025 1:00 PM EST Telemedicine [facility] MED & PEDS [address] [place] [address] Neha Lerma RN [address] [place] [address] 07/06/2025 11:30 AM EST Office Visit [facility] MED & PEDS [address] [place] [address] Michelle Archuleta MD [address] [place] [address] documented as of this encounter Visit Diagnoses Diagnosis Callus of hand documented in this encounter Additional Health Concerns Assessment Noted Time PHQ-9 Depression Total Score: 9 07/05/20 22 1:49 PM EST documented as of this encounter Care Teams Experiential Therapist Relationship Specialty Start Date End Date Michelle Archuleta MD [address] [place] [address] PCP - General Family Medicine 07/08/18 documented as of this encounter
[2025-05-06 04:13] LABS: Syphilis Screen Nonreactive (Nonreactive)
[2025-05-06 04:38] LABS: HIV Num 1 0.06 S/CO (0.00-0.99); ~HepC Num1 0.06 S/CO (0.00-0.79); ~Hepatitis C Antibody Nonreactive (Nonreactive)
== END 2025-05-05 11:51 | disposition home or self-care (01) ==
LOC: HO.CHCLDS 11:50
PROVIDERS: Visit Provider Pediatrics
DX: Z12.31 Encounter for screening mammogram for malignant neoplasm of breast (principal); Z11.3 Encounter for screening for infections with a predominantly sexual mode of transmission; Z11.4 Encounter for screening for human immunodeficiency virus [HIV]; Z11.59 Encounter for screening for other viral diseases; Z23 Encounter for immunization; N92.6 Irregular menstruation, unspecified
CPT/HCPCS: 36415; 80053; 82306; 82607; 82746; 83036; 84443; 85025; 86780; 86803; 87389